=== PATIENT | male | born 1975 | race Caucasian/White ===

== ENCOUNTER 2017-07-30 06:49 | Inpatient (IN) | payer OTHER ==
[~2017-07-30] VITALS: Ht 177.8 cm; Wt 95.2 kg
[~2017-07-30 06:49] MED LIST: OMEP-110 PO
[2017-07-30] MEDS ORDERED: ONDANSETRON 2MG/ML, 2ML ONE ×2 (07:30→09:11)
[2017-07-30] MEDS ORDERED: ONDANSETRON 2MG/ML, 2ML IVPush ONE (07:30)
[2017-07-30] MEDS ORDERED: HYDROmorphone 1 MG/ML, 1ML ONE ×4 (07:30→10:27)
[2017-07-30] MEDS: HYDROmorphone 1 MG/ML, 1ML IVPush PRN ×3 (07:36→09:02)
[2017-07-30 07:37] LABS: HEMATOCRIT 48.6 % (39.2-51.8); HEMOGLOBIN 16.6 g/dL (13.7-18.0); WHITE BLOOD COUNT 15.8 x10^3/uL (3.4-10)
[2017-07-30 07:44] LABS: BLOOD UREA NITROGEN 11 mg/dL (7-18)
[2017-07-30] MEDS ORDERED: HYDROmorphone 1 MG/ML, 1ML IV ONE (09:00)
[2017-07-30] MEDS ORDERED: HEPARIN 5,000 UNITS/ML, 1ML IV ONE (09:00)
[2017-07-30] MEDS ORDERED: MIDAZOLAM 1 MG/ML, 2ML ONE (09:07)
[2017-07-30] MEDS ORDERED: FENTANYL PF 250 MCG/5ML ONE (09:08)
[2017-07-30] MEDS ORDERED: PAPAVERINE 30 MG/ML, 2ML ONE (09:09)
[2017-07-30] MEDS ORDERED: HEPARIN 1,000 UNITS/ML, 30ML ONE (09:09)
[2017-07-30] MEDS ORDERED: THROMBIN 20,000 UNIT VIAL TP ONE (09:09)
[2017-07-30] MEDS ORDERED: BACITRACIN 50,000 UNIT ONE (09:10)
[2017-07-30] MEDS ORDERED: CEFAZOLIN 1,000 MG ONE (09:11)
[2017-07-30] MEDS ORDERED: NEOSTIGMINE 1 MG/ML, 10ML ONE (09:11)
[2017-07-30] MEDS ORDERED: GLYCOPYRROLATE 0.2MG/1ML, 5ML ONE (09:11)
[2017-07-30] MEDS ORDERED: ROCURONIUM 10 MG/ML,10ML ONE (09:11)
[2017-07-30] MEDS ORDERED: PROPOFOL 10 MG/ML, 20ML ONE (09:11)
[2017-07-30] MEDS ORDERED: SUCCINYLCHOLINE 20 MG/ML, 10ML ONE (09:11)
[2017-07-30] MEDS ORDERED: DEXAMETHASONE 4 MG/ML, 1ML ONE (09:11)
[2017-07-30] MEDS ORDERED: THROMBIN 5,000 UNIT VIAL TP ONE ×2 (09:20)
[2017-07-30] MEDS ORDERED: PROTAMINE SULFATE 10 MG/ML, 5ML ONE (09:21)
[2017-07-30] MEDS ORDERED: hydrALAzine 20 MG/ML, 1ML IV PRN (09:30)
[2017-07-30] MEDS ORDERED: HYDROmorphone 1 MG/ML, 1ML IV PRN (09:30)
[2017-07-30] MEDS ORDERED: PROMETHAZINE 25 MG/ML, 1ML IV PRN (09:30)
[2017-07-30] MEDS ORDERED: ONDANSETRON 2MG/ML, 2ML IVPush PRN (09:30)
[2017-07-30] MEDS ORDERED: FENTANYL PF 100 MCG/2ML IV PRN (09:30)
[2017-07-30] MEDS ORDERED: OXYcodone 5 MG/5 ML ORAL.SOL UDC PO PRN (09:30)
[2017-07-30] MEDS ORDERED: LABETALOL 5MG/ML, 20ML IV PRN (09:30)
[2017-07-30] MEDS ORDERED: HYDROcodone/APAP 7.5-325MG/15ML UDC PO PRN (09:30)
[2017-07-30] MEDS ORDERED: ACETAMINOPHEN 325 MG TABLET PO PRN ×2 (09:30→16:30)
[2017-07-30] MEDS ORDERED: LABETALOL 5MG/ML, 20ML ONE ×2 (10:17→12:34)
[2017-07-30] MEDS ORDERED: BUPIVACAINE/PF 0.5% ONE (10:17)
[2017-07-30] MEDS ORDERED: EPINEPHRINE 1 MG/ML, 1ML ONE (10:17)
[2017-07-30] MEDS ORDERED: BUPIVACAINE/PF 0.5% INFIL ONE (10:29)
[2017-07-30] MEDS ORDERED: MEPERIDINE/PF 25MG/0.5ML ONE (12:44)
[2017-07-30] MEDS ORDERED: OXYcodone 5 MG/5 ML ORAL.SOL UDC ONE (13:06)
[2017-07-30] MEDS ORDERED: MEPERIDINE/PF 25MG/0.5ML IVPush PRN (13:30)
[2017-07-30] MEDS ORDERED: D5%-0.45NACL+KCL 20MEQ 1,000 ML IV SCH (16:30)
[2017-07-30] MEDS: HEPARIN 5,000 UNITS/ML, 1ML IV PRN (16:46)
[2017-07-30] MEDS: HEPARIN 25,000 UNITS/500ML PMX 500 ML IV PRN (16:49)
[2017-07-30] MEDS ORDERED: WARFARIN 10 MG TABLET PO-COUM ONE (18:00)
[2017-07-30] MEDS: morphine SULFATE 10 MG/ML, 1ML IVPush PRN ×2 (19:27→21:32)
[2017-07-30] MEDS: NICOTINE 14MG/24 HR PATCH.TD24 TD SCH (20:04)
[2017-07-30] MEDS: SODIUM CHLORIDE FLUSH 10ML SYR IVF SCH (21:33)
[2017-07-31] MEDS: HEPARIN 5,000 UNITS/ML, 1ML IV PRN ×4 (00:21→22:09)
[2017-07-31] MEDS: morphine SULFATE 10 MG/ML, 1ML IVPush PRN ×4 (01:55→20:26)
[2017-07-31] MEDS: ASPIRIN 81 MG TABLET EC PO SCH (04:22)
[2017-07-31 04:26] VITALS: BP 155/75
[2017-07-31 04:35] LABS: HEMATOCRIT 37.6 % (39.2-51.8); HEMOGLOBIN 12.8 g/dL (13.7-18.0); WHITE BLOOD COUNT 10.6 x10^3/uL (3.4-10)
[2017-07-31 04:36] LABS: BLOOD UREA NITROGEN 9 mg/dL (7-18)
[2017-07-31] MEDS: MULTIVITAMIN 1 TABLET PO SCH (08:22)
[2017-07-31] MEDS: SODIUM CHLORIDE FLUSH 10ML SYR IVF SCH ×2 (08:22→19:22)
[2017-07-31] MEDS: WARFARIN HIGH DOSE PROTOCOL XX SCH (12:04)
[2017-07-31] MEDS: FOLIC ACID 1 MG TABLET PO SCH (12:09)
[2017-07-31] MEDS: THIAMINE 100MG TABLET PO SCH (12:09)
[2017-07-31 13:56] VITALS: BP 143/79
[2017-07-31] MEDS: HEPARIN 25,000 UNITS/500ML PMX 500 ML IV PRN (16:19)
[2017-07-31] MEDS ORDERED: WARFARIN 7.5 MG TABLET PO-COUM ONE (18:00)
[2017-07-31 18:35] VITALS: BP 129/77
[2017-07-31] MEDS: NICOTINE 14MG/24 HR PATCH.TD24 TD SCH (19:22)
[2017-08-01] MEDS: morphine SULFATE 10 MG/ML, 1ML IVPush PRN ×5 (00:34→12:52)
[2017-08-01] MEDS: NICOTINE 14MG/24 HR PATCH.TD24 TD SCH ×2 (00:39→22:03)
[2017-08-01 01:05] VITALS: BP 129/76
[2017-08-01] MEDS: ASPIRIN 81 MG TABLET EC PO SCH (03:39)
[2017-08-01 05:40] LABS: HEMATOCRIT 37.7 % (39.2-51.8); HEMOGLOBIN 12.6 g/dL (13.7-18.0); WHITE BLOOD COUNT 7.6 x10^3/uL (3.4-10)
[2017-08-01 05:47] LABS: ASPARTATE AMINO TRANSFERASE 100 U/L (15-37); BLOOD UREA NITROGEN 9 mg/dL (7-18)
[2017-08-01] MEDS: HEPARIN 5,000 UNITS/ML, 1ML IV PRN ×2 (06:09→15:51)
[2017-08-01 07:32] VITALS: BP 134/87
[2017-08-01] MEDS: FOLIC ACID 1 MG TABLET PO SCH (09:00)
[2017-08-01] MEDS: MULTIVITAMIN 1 TABLET PO SCH (09:00)
[2017-08-01] MEDS: THIAMINE 100MG TABLET PO SCH (09:00)
[2017-08-01] MEDS: SODIUM CHLORIDE FLUSH 10ML SYR IVF SCH ×2 (09:27→23:31)
[2017-08-01] MEDS: WARFARIN HIGH DOSE PROTOCOL XX SCH (12:00)
[2017-08-01] MEDS: KETOROLAC 30 MG/1 ML IVPush PRN ×2 (12:24→20:34)
[2017-08-01 15:13] VITALS: BP 147/84
[2017-08-01] MEDS: HEPARIN 25,000 UNITS/500ML PMX 500 ML IV PRN (15:44)
[2017-08-01] MEDS ORDERED: hydrALAzine 20 MG/ML, 1ML IV PRN ×2 (16:00→19:30)
[2017-08-01] MEDS ORDERED: WARFARIN 7.5 MG TABLET PO-COUM ONE (18:00)
[2017-08-01] MEDS ORDERED: MIDAZOLAM 1 MG/ML, 2ML ONE (19:10)
[2017-08-01] MEDS ORDERED: FENTANYL PF 100 MCG/2ML ONE ×3 (19:10→20:48)
[2017-08-01] MEDS ORDERED: PROPOFOL 10 MG/ML, 20ML ONE (19:11)
[2017-08-01] MEDS ORDERED: LABETALOL 5MG/ML, 20ML IV PRN (19:30)
[2017-08-01] MEDS ORDERED: PROMETHAZINE 25 MG/ML, 1ML IV PRN (19:30)
[2017-08-01] MEDS ORDERED: ONDANSETRON 2MG/ML, 2ML IVPush PRN (19:30)
[2017-08-01] MEDS ORDERED: MEPERIDINE/PF 25MG/0.5ML IVPush PRN (19:30)
[2017-08-01] MEDS ORDERED: OXYcodone 5 MG/5 ML ORAL.SOL UDC PO PRN (19:30)
[2017-08-01] MEDS ORDERED: ACETAMINOPHEN 650 MG/20.3 ML UDC ONE (20:17)
[2017-08-01] MEDS ORDERED: HYDROmorphone 1 MG/ML, 1ML ONE ×2 (20:17→20:33)
[2017-08-01] MEDS ORDERED: OXYcodone 5 MG/5 ML ORAL.SOL UDC ONE (20:17)
[2017-08-01] MEDS: HYDROmorphone 1 MG/ML, 1ML IV PRN ×4 (20:25→20:54)
[2017-08-01] MEDS ORDERED: KETOROLAC 30 MG/1 ML ONE (20:32)
[2017-08-01] MEDS: FENTANYL PF 100 MCG/2ML IV PRN ×2 (20:48→21:14)
[2017-08-02 01:46] VITALS: BP 126/81
[2017-08-02] MEDS: morphine SULFATE 10 MG/ML, 1ML IVPush PRN ×4 (03:16→23:33)
[2017-08-02 04:00] VITALS: BP 128/81
[2017-08-02 04:43] LABS: HEMATOCRIT 38.3 % (39.2-51.8); HEMOGLOBIN 12.9 g/dL (13.7-18.0)
[2017-08-02] MEDS: KETOROLAC 30 MG/1 ML IVPush PRN (04:44)
[2017-08-02] MEDS: ASPIRIN 81 MG TABLET EC PO SCH (04:44)
[2017-08-02 04:50] LABS: BLOOD UREA NITROGEN 7 mg/dL (7-18)
[2017-08-02] MEDS: HEPARIN 25,000 UNITS/500ML PMX 500 ML IV PRN ×2 (04:51→20:31)
[2017-08-02 08:20] VITALS: BP 134/84
[2017-08-02] MEDS: SODIUM CHLORIDE FLUSH 10ML SYR IVF SCH ×2 (08:59→21:09)
[2017-08-02] MEDS: FOLIC ACID 1 MG TABLET PO SCH (09:00)
[2017-08-02] MEDS: THIAMINE 100MG TABLET PO SCH (09:00)
[2017-08-02] MEDS: MULTIVITAMIN 1 TABLET PO SCH (09:00)
[2017-08-02] MEDS: WARFARIN HIGH DOSE PROTOCOL XX SCH (12:00)
[2017-08-02 13:00] VITALS: BP 148/80
[2017-08-02] MEDS: FENTANYL 75 MCG PATCH TD SCH (13:15)
[2017-08-02] MEDS ORDERED: WARFARIN 10 MG TABLET PO-COUM ONE (18:00)
[2017-08-02] MEDS: METOPROLOL TARTRATE 50 MG TABLET PO SCH (18:44)
[2017-08-02 19:46] VITALS: BP 137/87
[2017-08-02] MEDS: NICOTINE 14MG/24 HR PATCH.TD24 TD SCH (21:09)
[2017-08-02] MEDS: OXYcodone/APAP 7.5/325MG TABLET PO PRN (21:26)
[2017-08-03] MEDS: morphine SULFATE 10 MG/ML, 1ML IVPush PRN ×4 (00:34→08:07)
[2017-08-03 01:23] VITALS: BP 131/84
[2017-08-03] MEDS: OXYcodone/APAP 7.5/325MG TABLET PO PRN ×2 (05:37→10:08)
[2017-08-03] MEDS: ASPIRIN 81 MG TABLET EC PO SCH (05:37)
[2017-08-03] MEDS: METOPROLOL TARTRATE 50 MG TABLET PO SCH ×2 (05:41→17:54)
[2017-08-03 05:42] VITALS: BP 156/83
[2017-08-03] MEDS: KETOROLAC 30 MG/1 ML IVPush PRN ×3 (05:50→20:37)
[2017-08-03 06:12] LABS: ANTI-Xa-UNFRACTIONATED HEP 0.21 IU/mL (0.30-0.70)
[2017-08-03 06:13] LABS: HEMATOCRIT 39.9 % (39.2-51.8); HEMOGLOBIN 13.8 g/dL (13.7-18.0); WHITE BLOOD COUNT 12.7 x10^3/uL (3.4-10)
[2017-08-03] MEDS ORDERED: HEPARIN 5,000 UNITS/ML, 1ML ONE (06:25)
[2017-08-03] MEDS ORDERED: HEPARIN 5,000 UNITS/ML, 1ML SQ PRN (06:30)
[2017-08-03 06:41] LABS: BLOOD UREA NITROGEN 7 mg/dL (7-18)
[2017-08-03] MEDS: HEPARIN 5,000 UNITS/ML, 1ML IV PRN ×2 (06:43→14:02)
[2017-08-03 07:39] VITALS: BP 133/85
[2017-08-03] MEDS: MULTIVITAMIN 1 TABLET PO SCH (08:07)
[2017-08-03] MEDS: SODIUM CHLORIDE FLUSH 10ML SYR IVF SCH ×2 (08:07→20:38)
[2017-08-03] MEDS: FOLIC ACID 1 MG TABLET PO SCH (08:07)
[2017-08-03] MEDS: THIAMINE 100MG TABLET PO SCH (08:07)
[2017-08-03] MEDS: HEPARIN 25,000 UNITS/500ML PMX 500 ML IV PRN ×2 (10:20→23:15)
[2017-08-03] MEDS ORDERED: NALOXONE 0.4 MG/ML, 1ML IVPush PRN (10:30)
[2017-08-03] MEDS: HYDROmorphone PCA 30 MG/30 ML IV PRN (11:01)
[2017-08-03] MEDS: WARFARIN HIGH DOSE PROTOCOL XX SCH (12:16)
[2017-08-03] MEDS: OXYcodone/APAP 7.5/325MG TABLET PO SCH ×3 (14:00→22:12)
[2017-08-03] MEDS: DOCUSATE 100 MG CAPSULE PO SCH ×2 (14:01→20:38)
[2017-08-03 14:07] VITALS: BP 136/87
[2017-08-03] MEDS: NICOTINE 14MG/24 HR PATCH.TD24 TD SCH (17:55)
[2017-08-03] MEDS ORDERED: WARFARIN 10 MG TABLET PO-COUM ONE (18:00)
[2017-08-03] MEDS ORDERED: ACETAMINOPHEN 325 MG TABLET PO PRN (19:00)
[2017-08-03] MEDS ORDERED: hydrALAzine 20 MG/ML, 1ML IV PRN (19:00)
[2017-08-03 19:18] VITALS: BP 116/83
[2017-08-04 02:13] VITALS: BP 116/73
[2017-08-04] MEDS: OXYcodone/APAP 7.5/325MG TABLET PO SCH ×6 (02:18→22:01)
[2017-08-04 02:33] LABS: HEMATOCRIT 37.5 % (39.2-51.8); HEMOGLOBIN 12.7 g/dL (13.7-18.0)
[2017-08-04 02:36] LABS: BLOOD UREA NITROGEN 12 mg/dL (7-18)
[2017-08-04] MEDS: KETOROLAC 30 MG/1 ML IVPush PRN ×3 (04:05→23:53)
[2017-08-04] MEDS: ASPIRIN 81 MG TABLET EC PO SCH (05:47)
[2017-08-04] MEDS: METOPROLOL TARTRATE 50 MG TABLET PO SCH ×2 (05:48→16:53)
[2017-08-04 07:23] VITALS: BP 123/81
[2017-08-04] MEDS: HYDROmorphone PCA 30 MG/30 ML IV PRN (07:56)
[2017-08-04] MEDS: SODIUM CHLORIDE FLUSH 10ML SYR IVF SCH ×2 (07:56→21:00)
[2017-08-04] MEDS: FOLIC ACID 1 MG TABLET PO SCH (09:00)
[2017-08-04] MEDS: DOCUSATE 100 MG CAPSULE PO SCH ×2 (09:00→20:24)
[2017-08-04] MEDS: THIAMINE 100MG TABLET PO SCH (09:00)
[2017-08-04] MEDS: MULTIVITAMIN 1 TABLET PO SCH (09:00)
[2017-08-04] MEDS ORDERED: MIDAZOLAM 1 MG/ML, 2ML ONE (10:36)
[2017-08-04] MEDS ORDERED: FENTANYL PF 100 MCG/2ML ONE ×2 (10:36→12:02)
[2017-08-04] MEDS ORDERED: BUPIVACAINE/PF 0.5% ONE (10:41)
[2017-08-04] MEDS ORDERED: PROPOFOL 10 MG/ML, 20ML ONE (11:00)
[2017-08-04] MEDS ORDERED: CEFAZOLIN 1,000 MG ONE (11:00)
[2017-08-04] MEDS ORDERED: LIDOCAINE-MPF 2% ,5ML ONE (11:00)
[2017-08-04] MEDS ORDERED: ONDANSETRON 2MG/ML, 2ML ONE (11:00)
[2017-08-04] MEDS ORDERED: DEXAMETHASONE 4 MG/ML, 1ML ONE (11:00)
[2017-08-04] MEDS: WARFARIN HIGH DOSE PROTOCOL XX SCH (11:13)
[2017-08-04] MEDS: FENTANYL PF 100 MCG/2ML IV PRN ×2 (12:00→12:11)
[2017-08-04] MEDS: HYDROmorphone 1 MG/ML, 1ML IV PRN ×2 (12:02→12:12)
[2017-08-04] MEDS ORDERED: HYDROmorphone 1 MG/ML, 1ML ONE (12:02)
[2017-08-04] MEDS: HEPARIN 25,000 UNITS/500ML PMX 500 ML IV PRN (12:29)
[2017-08-04] MEDS ORDERED: LABETALOL 5MG/ML, 20ML IV PRN (12:30)
[2017-08-04] MEDS ORDERED: ACETAMINOPHEN 325 MG TABLET PO PRN (12:30)
[2017-08-04] MEDS ORDERED: MIDAZOLAM 1 MG/ML, 2ML IV PRN (12:30)
[2017-08-04] MEDS ORDERED: MEPERIDINE/PF 25MG/0.5ML IVPush PRN (12:30)
[2017-08-04] MEDS ORDERED: OXYcodone 5 MG/5 ML ORAL.SOL UDC PO PRN (12:30)
[2017-08-04] MEDS ORDERED: PROMETHAZINE 25 MG/ML, 1ML IV PRN (12:30)
[2017-08-04] MEDS ORDERED: ONDANSETRON 2MG/ML, 2ML IVPush PRN (12:30)
[2017-08-04] MEDS ORDERED: hydrALAzine 20 MG/ML, 1ML IV PRN (12:30)
[2017-08-04] MEDS: GABAPENTIN 100 MG CAPSULE PO SCH ×3 (13:36→20:25)
[2017-08-04] MEDS: CILOSTAZOL 100 MG TABLET PO SCH ×2 (13:36→20:24)
[2017-08-04 13:51] VITALS: BP 126/76
[2017-08-04] MEDS ORDERED: WARFARIN 7.5 MG TABLET PO-COUM ONE (18:00)
[2017-08-04] MEDS: NICOTINE 14MG/24 HR PATCH.TD24 TD SCH (19:30)
[2017-08-04 19:44] VITALS: BP 117/73
[2017-08-05] MEDS: HEPARIN 25,000 UNITS/500ML PMX 500 ML IV PRN ×2 (00:51→12:15)
[2017-08-05] MEDS: morphine SULFATE 10 MG/ML, 1ML IVPush PRN (01:01)
[2017-08-05] MEDS: OXYcodone/APAP 7.5/325MG TABLET PO SCH ×6 (01:48→22:00)
[2017-08-05 03:57] VITALS: BP 144/80
[2017-08-05 04:46] LABS: HEMATOCRIT 33.3 % (39.2-51.8); HEMOGLOBIN 11.4 g/dL (13.7-18.0); WHITE BLOOD COUNT 15.3 x10^3/uL (3.4-10)
[2017-08-05 04:55] LABS: ANTI-Xa-UNFRACTIONATED HEP 0.45 IU/mL (0.30-0.70)
[2017-08-05 04:57] LABS: BLOOD UREA NITROGEN 9 mg/dL (7-18)
[2017-08-05] MEDS: KETOROLAC 30 MG/1 ML IVPush PRN ×3 (05:16→20:53)
[2017-08-05] MEDS: METOPROLOL TARTRATE 50 MG TABLET PO SCH ×2 (06:04→18:56)
[2017-08-05] MEDS: ASPIRIN 81 MG TABLET EC PO SCH (06:04)
[2017-08-05] MEDS: HYDROmorphone PCA 30 MG/30 ML IV PRN (06:48)
[2017-08-05 07:01] VITALS: BP 128/73
[2017-08-05] MEDS: MULTIVITAMIN 1 TABLET PO SCH (08:44)
[2017-08-05] MEDS: DOCUSATE 100 MG CAPSULE PO SCH ×2 (08:44→20:48)
[2017-08-05] MEDS: THIAMINE 100MG TABLET PO SCH (08:44)
[2017-08-05] MEDS: FOLIC ACID 1 MG TABLET PO SCH (08:44)
[2017-08-05] MEDS: GABAPENTIN 100 MG CAPSULE PO SCH ×3 (08:44→20:48)
[2017-08-05] MEDS: SODIUM CHLORIDE FLUSH 10ML SYR IVF SCH ×2 (08:45→21:00)
[2017-08-05] MEDS: CILOSTAZOL 100 MG TABLET PO SCH ×2 (08:52→20:48)
[2017-08-05] MEDS: WARFARIN HIGH DOSE PROTOCOL XX SCH (11:46)
[2017-08-05] MEDS: FENTANYL REMOVE PATCH NOTE XX SCH (12:23)
[2017-08-05] MEDS: FENTANYL 75 MCG PATCH TD SCH (12:24)
[2017-08-05 13:00] VITALS: BP 135/78
[2017-08-05] MEDS ORDERED: WARFARIN 10 MG TABLET PO-COUM ONE (18:00)
[2017-08-05 18:23] VITALS: BP 160/98
[2017-08-05] MEDS: NICOTINE 14MG/24 HR PATCH.TD24 TD SCH (19:30)
[2017-08-05 20:00] VITALS: BP 165/89
[2017-08-06] MEDS ORDERED: LORazepam 2 MG/ML, 1ML ONE (00:04)
[2017-08-06] MEDS: LORazepam 2 MG/ML, 1ML IVPush PRN ×4 (00:07→22:01)
[2017-08-06] MEDS ORDERED: FENTANYL 1500 MCG/30 ML PCA IV PRN (00:30)
[2017-08-06] MEDS: OXYcodone/APAP 7.5/325MG TABLET PO SCH (02:00)
[2017-08-06 02:10] VITALS: BP 132/77
[2017-08-06] MEDS: HEPARIN 25,000 UNITS/500ML PMX 500 ML IV PRN (02:17)
[2017-08-06] MEDS: OXYcodone/APAP 10/325MG TABLET PO PRN ×2 (02:19→08:09)
[2017-08-06] MEDS: ASPIRIN 81 MG TABLET EC PO SCH (05:19)
[2017-08-06] MEDS: METOPROLOL TARTRATE 50 MG TABLET PO SCH ×2 (05:19→16:39)
[2017-08-06 05:34] LABS: HEMATOCRIT 31.2 % (39.2-51.8); HEMOGLOBIN 10.7 g/dL (13.7-18.0); WHITE BLOOD COUNT 14.7 x10^3/uL (3.4-10)
[2017-08-06 05:44] LABS: ANTI-Xa-UNFRACTIONATED HEP 0.02 IU/mL (0.30-0.70)
[2017-08-06 05:50] LABS: BLOOD UREA NITROGEN 9 mg/dL (7-18)
[2017-08-06 07:10] VITALS: BP 145/84
[2017-08-06] MEDS: DOCUSATE 100 MG CAPSULE PO SCH ×2 (11:01→21:57)
[2017-08-06] MEDS: CILOSTAZOL 100 MG TABLET PO SCH ×2 (11:01→21:57)
[2017-08-06] MEDS: FOLIC ACID 1 MG TABLET PO SCH (11:01)
[2017-08-06] MEDS: GABAPENTIN 300 MG CAPSULE PO SCH ×3 (11:02→21:57)
[2017-08-06] MEDS: MULTIVITAMIN 1 TABLET PO SCH (11:03)
[2017-08-06] MEDS: THIAMINE 100MG TABLET PO SCH (11:03)
[2017-08-06] MEDS: SODIUM CHLORIDE FLUSH 10ML SYR IVF SCH ×2 (11:06→21:00)
[2017-08-06] MEDS: WARFARIN HIGH DOSE PROTOCOL XX SCH (12:00)
[2017-08-06 12:50] VITALS: BP 122/78
[2017-08-06] MEDS: OXYcodone/APAP 10/325MG TABLET PO SCH ×3 (14:34→21:57)
[2017-08-06] MEDS: morphine SULFATE 10 MG/ML, 1ML IVPush PRN ×4 (16:50→23:35)
[2017-08-06] MEDS: NICOTINE 14MG/24 HR PATCH.TD24 TD SCH (17:59)
[2017-08-06] MEDS ORDERED: WARFARIN 10 MG TABLET PO-COUM ONE (18:00)
[2017-08-06 20:05] VITALS: BP 128/79
[2017-08-07] MEDS: FENTANYL 1500 MCG/30 ML PCA IV PRN (02:10)
[2017-08-07] MEDS: OXYcodone/APAP 10/325MG TABLET PO SCH ×5 (02:12→20:36)
[2017-08-07] MEDS: morphine SULFATE 10 MG/ML, 1ML IVPush PRN ×8 (02:30→23:55)
[2017-08-07 03:19] VITALS: BP 140/92
[2017-08-07 06:48] LABS: HEMATOCRIT 32.5 % (39.2-51.8); HEMOGLOBIN 11.2 g/dL (13.7-18.0); WHITE BLOOD COUNT 14.8 x10^3/uL (3.4-10)
[2017-08-07 06:59] LABS: BLOOD UREA NITROGEN 8 mg/dL (7-18)
[2017-08-07 07:45] VITALS: BP 147/82
[2017-08-07] MEDS: ASPIRIN 81 MG TABLET EC PO SCH (08:30)
[2017-08-07] MEDS: CILOSTAZOL 100 MG TABLET PO SCH ×2 (08:30→20:37)
[2017-08-07] MEDS: METOPROLOL TARTRATE 50 MG TABLET PO SCH ×2 (08:30→18:40)
[2017-08-07] MEDS ORDERED: HOLD COUMADIN MC PRN (08:30)
[2017-08-07] MEDS: SODIUM CHLORIDE FLUSH 10ML SYR IVF SCH ×2 (08:30→20:37)
[2017-08-07] MEDS: DOCUSATE 100 MG CAPSULE PO SCH ×2 (08:30→20:44)
[2017-08-07] MEDS: MULTIVITAMIN 1 TABLET PO SCH (08:31)
[2017-08-07] MEDS: FOLIC ACID 1 MG TABLET PO SCH (08:31)
[2017-08-07] MEDS: THIAMINE 100MG TABLET PO SCH (08:31)
[2017-08-07] MEDS: GABAPENTIN 300 MG CAPSULE PO SCH ×3 (08:31→20:37)
[2017-08-07] MEDS: WARFARIN HIGH DOSE PROTOCOL XX SCH (12:00)
[2017-08-07 12:46] VITALS: BP 109/72
[2017-08-07] MEDS: NICOTINE 14MG/24 HR PATCH.TD24 TD SCH (19:30)
[2017-08-07] MEDS ORDERED: HALOPERIDOL 5 MG/ML IM PRN (19:30)
[2017-08-07 20:07] VITALS: BP 129/86
[2017-08-08] VITALS (8 sets, daily range): BP systolic 101–129; BP diastolic 70–89
[2017-08-08] MEDS: OXYcodone/APAP 10/325MG TABLET PO SCH ×6 (00:28→20:32)
[2017-08-08] MEDS: morphine SULFATE 10 MG/ML, 1ML IVPush PRN ×15 (01:19→21:58)
[2017-08-08] MEDS: FENTANYL 1500 MCG/30 ML PCA IV PRN (04:13)
[2017-08-08 04:35] LABS: HEMATOCRIT 32.9 % (39.2-51.8); HEMOGLOBIN 11.2 g/dL (13.7-18.0); WHITE BLOOD COUNT 18.3 x10^3/uL (3.4-10)
[2017-08-08 04:50] LABS: BLOOD UREA NITROGEN 12 mg/dL (7-18)
[2017-08-08] MEDS: ASPIRIN 81 MG TABLET EC PO SCH (06:15)
[2017-08-08] MEDS: METOPROLOL TARTRATE 50 MG TABLET PO SCH ×2 (06:16→17:43)
[2017-08-08] MEDS: MULTIVITAMIN 1 TABLET PO SCH (08:11)
[2017-08-08] MEDS: GABAPENTIN 300 MG CAPSULE PO SCH ×3 (08:11→20:37)
[2017-08-08] MEDS: FOLIC ACID 1 MG TABLET PO SCH (08:11)
[2017-08-08] MEDS: THIAMINE 100MG TABLET PO SCH (08:11)
[2017-08-08] MEDS: DOCUSATE 100 MG CAPSULE PO SCH ×2 (08:11→20:37)
[2017-08-08] MEDS: SODIUM CHLORIDE FLUSH 10ML SYR IVF SCH ×2 (08:12→20:37)
[2017-08-08] MEDS: CILOSTAZOL 100 MG TABLET PO SCH ×2 (08:12→20:37)
[2017-08-08] MEDS: FENTANYL 100 MCG PATCH TD SCH (11:13)
[2017-08-08] MEDS: FENTANYL 25 MCG PATCH TD SCH (11:14)
[2017-08-08] MEDS: WARFARIN HIGH DOSE PROTOCOL XX SCH (12:00)
[2017-08-08] MEDS: DIAZEPAM 5 MG/ML, 10ML VIAL IV PRN ×2 (12:14→16:17)
[2017-08-08] MEDS: FENTANYL REMOVE PATCH NOTE XX SCH (12:59)
[2017-08-08] MEDS ORDERED: FENTANYL 100 MCG PATCH TD SCH (13:00)
[2017-08-08] MEDS: NICOTINE 14MG/24 HR PATCH.TD24 TD SCH (17:44)
[2017-08-08] MEDS ORDERED: WARFARIN 10 MG TABLET PO-COUM SCH (18:00)
[2017-08-08] MEDS ORDERED: PHYTONADIONE 5 MG in SODIUM CHLORIDE 0.9% 50 ML IV ONE (20:00)
[2017-08-09] VITALS (9 sets, daily range): BP systolic 116–155; BP diastolic 64–95
[2017-08-09] MEDS: morphine SULFATE 10 MG/ML, 1ML IVPush PRN ×5 (00:22→15:32)
[2017-08-09] MEDS: OXYcodone/APAP 10/325MG TABLET PO SCH ×6 (00:39→22:58)
[2017-08-09] MEDS: WARFARIN HIGH DOSE PROTOCOL XX SCH (01:58)
[2017-08-09] MEDS: DIAZEPAM 5 MG/ML, 10ML VIAL IV PRN (02:24)
[2017-08-09] MEDS: ASPIRIN 81 MG TABLET EC PO SCH (03:00)
[2017-08-09 05:33] LABS: HEMATOCRIT 28.9 % (39.2-51.8); HEMOGLOBIN 9.9 g/dL (13.7-18.0); WHITE BLOOD COUNT 14.4 x10^3/uL (3.4-10)
[2017-08-09 05:41] LABS: BLOOD UREA NITROGEN 11 mg/dL (7-18)
[2017-08-09] MEDS: METOPROLOL TARTRATE 50 MG TABLET PO SCH ×2 (06:35→18:00)
[2017-08-09] MEDS: SODIUM CHLORIDE FLUSH 10ML SYR IVF SCH ×2 (07:45→22:58)
[2017-08-09] MEDS: DOCUSATE 100 MG CAPSULE PO SCH ×2 (07:45→22:59)
[2017-08-09] MEDS: CILOSTAZOL 100 MG TABLET PO SCH ×2 (07:45→22:58)
[2017-08-09] MEDS: MULTIVITAMIN 1 TABLET PO SCH (07:46)
[2017-08-09] MEDS: FOLIC ACID 1 MG TABLET PO SCH (07:46)
[2017-08-09] MEDS: GABAPENTIN 300 MG CAPSULE PO SCH ×3 (07:46→22:59)
[2017-08-09] MEDS: THIAMINE 100MG TABLET PO SCH (07:46)
[2017-08-09] MEDS: FENTANYL 1500 MCG/30 ML PCA IV PRN (10:57)
[2017-08-09] MEDS ORDERED: LIDOCAINE-MPF 2% ,5ML ONE (16:40)
[2017-08-09] MEDS ORDERED: MIDAZOLAM 1 MG/ML, 2ML ONE (16:40)
[2017-08-09] MEDS ORDERED: KETAMINE 10 MG/ML, 20ML ONE (16:40)
[2017-08-09] MEDS ORDERED: PROPOFOL 10 MG/ML, 20ML ONE (16:40)
[2017-08-09] MEDS ORDERED: SUFentanil 50 MCG/ML, 1ML ONE (16:40)
[2017-08-09] MEDS ORDERED: SUCCINYLCHOLINE 20 MG/ML, 10ML ONE (16:41)
[2017-08-09] MEDS ORDERED: CEFAZOLIN 1,000 MG ONE (16:50)
[2017-08-09] MEDS ORDERED: DEXAMETHASONE 4 MG/ML, 1ML ONE ×2 (17:03)
[2017-08-09] MEDS ORDERED: HYDROmorphone 1 MG/ML, 1ML IV PRN ×2 (17:30→19:00)
[2017-08-09] MEDS ORDERED: ONDANSETRON 2MG/ML, 2ML IVPush PRN ×2 (17:30→19:00)
[2017-08-09] MEDS ORDERED: PROMETHAZINE 25 MG/ML, 1ML IV PRN ×2 (17:30→19:00)
[2017-08-09] MEDS ORDERED: FENTANYL PF 100 MCG/2ML IV PRN ×2 (17:30→19:00)
[2017-08-09] MEDS ORDERED: ALBUTEROL SULFATE 2.5 MG/3 ML NPPB PRN ×2 (17:30→19:00)
[2017-08-09] MEDS ORDERED: hydrALAzine 20 MG/ML, 1ML IV PRN ×2 (17:30→19:00)
[2017-08-09] MEDS ORDERED: LABETALOL 5MG/ML, 20ML IV PRN ×2 (17:30→19:00)
[2017-08-09] MEDS ORDERED: LORazepam 2 MG/ML, 1ML IVPush PRN ×2 (17:30→19:00)
[2017-08-09] MEDS ORDERED: MEPERIDINE/PF 25MG/0.5ML IVPush PRN ×2 (17:30→19:00)
[2017-08-09] MEDS ORDERED: WARFARIN 10 MG TABLET PO-COUM SCH (18:00)
[2017-08-09] MEDS ORDERED: ONDANSETRON 2MG/ML, 2ML ONE (18:07)
[2017-08-09] MEDS ORDERED: KETOROLAC 30 MG/1 ML ONE (18:08)
[2017-08-09] MEDS ORDERED: HYDROmorphone 1 MG/ML, 1ML ONE ×2 (18:09→19:14)
[2017-08-09] MEDS ORDERED: HYDROmorphone 2 MG/ML, 1ML ONE ×2 (18:24→18:36)
[2017-08-09] MEDS ORDERED: HALOPERIDOL 5 MG/ML ONE (18:29)
[2017-08-09] MEDS ORDERED: FENTANYL PF 100 MCG/2ML ONE (18:36)
[2017-08-09] MEDS ORDERED: OXYcodone 5 MG/5 ML ORAL.SOL UDC ONE (18:36)
[2017-08-09] MEDS ORDERED: ACETAMINOPHEN 650 MG/20.3 ML UDC ONE (18:36)
[2017-08-09] MEDS ORDERED: HYDROcodone/APAP 7.5-325MG/15ML UDC PO PRN (19:00)
[2017-08-09] MEDS ORDERED: ACETAMINOPHEN 325 MG TABLET PO PRN (19:00)
[2017-08-09] MEDS ORDERED: ALBUTEROL/IPRATROPIUM 2.5MG/0.5MG, 3 ML NPPB PRN (19:00)
[2017-08-09] MEDS ORDERED: OXYcodone 5 MG/5 ML ORAL.SOL UDC PO PRN (19:00)
[2017-08-09] MEDS ORDERED: MIDAZOLAM 1 MG/ML, 2ML IV PRN (19:00)
[2017-08-09] MEDS: NICOTINE 14MG/24 HR PATCH.TD24 TD SCH (19:30)
[2017-08-10 00:56] VITALS: BP 127/74
[2017-08-10 04:06] VITALS: BP 125/71
[2017-08-10] MEDS: OXYcodone/APAP 10/325MG TABLET PO SCH ×5 (04:22→22:14)
[2017-08-10 05:33] LABS: HEMATOCRIT 30.8 % (39.2-51.8); HEMOGLOBIN 10.4 g/dL (13.7-18.0); WHITE BLOOD COUNT 12.8 x10^3/uL (3.4-10)
[2017-08-10 05:41] LABS: BLOOD UREA NITROGEN 8 mg/dL (7-18)
[2017-08-10 06:14] VITALS: BP 128/74
[2017-08-10] MEDS: ASPIRIN 81 MG TABLET EC PO SCH (06:15)
[2017-08-10] MEDS: METOPROLOL TARTRATE 50 MG TABLET PO SCH ×2 (06:16→17:51)
[2017-08-10] MEDS: DIAZEPAM 5 MG/ML, 10ML VIAL IV PRN (06:16)
[2017-08-10] MEDS: SODIUM CHLORIDE FLUSH 10ML SYR IVF SCH ×2 (08:40→22:14)
[2017-08-10] MEDS: CILOSTAZOL 100 MG TABLET PO SCH ×2 (08:40→22:14)
[2017-08-10] MEDS: GABAPENTIN 300 MG CAPSULE PO SCH ×3 (08:40→22:14)
[2017-08-10] MEDS: DOCUSATE 100 MG CAPSULE PO SCH ×2 (08:40→22:14)
[2017-08-10] MEDS: FOLIC ACID 1 MG TABLET PO SCH (08:40)
[2017-08-10] MEDS: MULTIVITAMIN 1 TABLET PO SCH (08:41)
[2017-08-10] MEDS: THIAMINE 100MG TABLET PO SCH (08:41)
[2017-08-10 13:58] VITALS: BP 125/82
[2017-08-10] MEDS: WARFARIN HIGH DOSE PROTOCOL XX SCH (14:00)
[2017-08-10] MEDS: LORazepam 2 MG/ML, 1ML IVPush PRN (17:36)
[2017-08-10] MEDS ORDERED: WARFARIN 7.5 MG TABLET PO-COUM SCH (18:00)
[2017-08-10] MEDS: NICOTINE 14MG/24 HR PATCH.TD24 TD SCH (19:30)
[2017-08-10 20:32] VITALS: BP 132/82
[2017-08-10] MEDS: FENTANYL 1500 MCG/30 ML PCA IV PRN (21:06)
[2017-08-11 03:08] VITALS: BP 127/84
[2017-08-11] MEDS: OXYcodone/APAP 10/325MG TABLET PO SCH ×6 (03:09→23:00)
[2017-08-11 05:43] LABS: HEMATOCRIT 28.3 % (39.2-51.8); HEMOGLOBIN 9.8 g/dL (13.7-18.0); WHITE BLOOD COUNT 13.3 x10^3/uL (3.4-10)
[2017-08-11 05:55] LABS: BLOOD UREA NITROGEN 10 mg/dL (7-18)
[2017-08-11 06:16] VITALS: BP 132/87
[2017-08-11] MEDS: METOPROLOL TARTRATE 50 MG TABLET PO SCH ×2 (06:18→18:04)
[2017-08-11] MEDS: ASPIRIN 81 MG TABLET EC PO SCH (06:18)
[2017-08-11] MEDS: DIAZEPAM 5 MG/ML, 10ML VIAL IV PRN ×3 (06:30→23:28)
[2017-08-11 07:33] VITALS: BP 132/80
[2017-08-11] MEDS: DOCUSATE 100 MG CAPSULE PO SCH ×2 (10:00→21:02)
[2017-08-11] MEDS: SODIUM CHLORIDE FLUSH 10ML SYR IVF SCH ×2 (10:00→21:03)
[2017-08-11] MEDS: THIAMINE 100MG TABLET PO SCH (10:01)
[2017-08-11] MEDS: MULTIVITAMIN 1 TABLET PO SCH (10:01)
[2017-08-11] MEDS: CILOSTAZOL 100 MG TABLET PO SCH ×2 (10:01→21:02)
[2017-08-11] MEDS: GABAPENTIN 300 MG CAPSULE PO SCH ×3 (10:01→21:01)
[2017-08-11] MEDS: FOLIC ACID 1 MG TABLET PO SCH (10:01)
[2017-08-11] MEDS ORDERED: FENTANYL 75 MCG PATCH ONE (11:17)
[2017-08-11] MEDS: ENOXAPARIN 150 MG/ML SQ SCH (11:24)
[2017-08-11] MEDS: WARFARIN HIGH DOSE PROTOCOL XX SCH (12:00)
[2017-08-11 16:00] VITALS: BP 139/91
[2017-08-11] MEDS: FENTANYL 25 MCG PATCH TD SCH (16:42)
[2017-08-11] MEDS: FENTANYL REMOVE PATCH NOTE XX SCH (16:42)
[2017-08-11] MEDS: FENTANYL 100 MCG PATCH TD SCH (16:42)
[2017-08-11] MEDS: WARFARIN 10 MG TABLET PO-COUM ONE ×2 (18:00→23:14)
[2017-08-11] MEDS: NICOTINE 14MG/24 HR PATCH.TD24 TD SCH (19:30)
[2017-08-11 20:10] VITALS: BP 144/90
[2017-08-11] MEDS: FENTANYL 1500 MCG/30 ML PCA IV PRN (20:24)
[2017-08-12 01:58] VITALS: BP 96/61
[2017-08-12] MEDS: OXYcodone/APAP 10/325MG TABLET PO SCH ×6 (03:07→23:04)
[2017-08-12 06:22] LABS: HEMOGLOBIN 10.1 g/dL (13.7-18.0); WHITE BLOOD COUNT 11.7 x10^3/uL (3.4-10)
[2017-08-12] MEDS: METOPROLOL TARTRATE 50 MG TABLET PO SCH ×2 (06:30→18:52)
[2017-08-12] MEDS: ASPIRIN 81 MG TABLET EC PO SCH (06:30)
[2017-08-12 06:34] LABS: BLOOD UREA NITROGEN 7 mg/dL (7-18)
[2017-08-12 06:44] VITALS: BP 134/82
[2017-08-12] MEDS: DIAZEPAM 5 MG/ML, 10ML VIAL IV PRN ×3 (06:48→23:21)
[2017-08-12] MEDS: THIAMINE 100MG TABLET PO SCH (08:29)
[2017-08-12] MEDS: FOLIC ACID 1 MG TABLET PO SCH (08:29)
[2017-08-12] MEDS: MULTIVITAMIN 1 TABLET PO SCH (08:29)
[2017-08-12] MEDS: GABAPENTIN 300 MG CAPSULE PO SCH ×3 (08:29→21:15)
[2017-08-12] MEDS: DOCUSATE 100 MG CAPSULE PO SCH ×2 (08:29→21:00)
[2017-08-12] MEDS: SODIUM CHLORIDE FLUSH 10ML SYR IVF SCH ×2 (08:30→21:16)
[2017-08-12] MEDS: CILOSTAZOL 100 MG TABLET PO SCH ×2 (10:20→21:16)
[2017-08-12] MEDS: ENOXAPARIN 150 MG/ML SQ SCH (11:09)
[2017-08-12] MEDS: WARFARIN HIGH DOSE PROTOCOL XX SCH (11:55)
[2017-08-12 13:03] VITALS: BP 108/68
[2017-08-12] MEDS ORDERED: WARFARIN 7.5 MG TABLET PO-COUM ONE (18:00)
[2017-08-12] MEDS: FENTANYL 1500 MCG/30 ML PCA IV PRN (18:53)
[2017-08-12 19:19] VITALS: BP 133/90
[2017-08-12] MEDS: NICOTINE 14MG/24 HR PATCH.TD24 TD SCH (19:30)
[2017-08-13 02:00] VITALS: BP 121/79
[2017-08-13] MEDS: OXYcodone/APAP 10/325MG TABLET PO SCH ×6 (03:01→22:52)
[2017-08-13] MEDS: ASPIRIN 81 MG TABLET EC PO SCH (06:04)
[2017-08-13] MEDS: METOPROLOL TARTRATE 50 MG TABLET PO SCH ×2 (06:04→17:50)
[2017-08-13 06:40] VITALS: BP 120/78
[2017-08-13 08:14] LABS: HEMATOCRIT 30.6 % (39.2-51.8); HEMOGLOBIN 10.5 g/dL (13.7-18.0); WHITE BLOOD COUNT 10.9 x10^3/uL (3.4-10)
[2017-08-13 08:21] LABS: BLOOD UREA NITROGEN 8 mg/dL (7-18)
[2017-08-13] MEDS: GABAPENTIN 300 MG CAPSULE PO SCH ×3 (10:11→20:31)
[2017-08-13] MEDS: THIAMINE 100MG TABLET PO SCH (10:11)
[2017-08-13] MEDS: DOCUSATE 100 MG CAPSULE PO SCH ×2 (10:11→20:31)
[2017-08-13] MEDS: FOLIC ACID 1 MG TABLET PO SCH (10:11)
[2017-08-13] MEDS: MULTIVITAMIN 1 TABLET PO SCH (10:11)
[2017-08-13] MEDS: CILOSTAZOL 100 MG TABLET PO SCH ×2 (10:11→20:31)
[2017-08-13] MEDS: DIAZEPAM 5 MG/ML, 10ML VIAL IV PRN ×2 (10:14→17:50)
[2017-08-13] MEDS: SODIUM CHLORIDE FLUSH 10ML SYR IVF SCH ×2 (10:14→20:31)
[2017-08-13] MEDS: ENOXAPARIN 150 MG/ML SQ SCH (11:14)
[2017-08-13] MEDS: WARFARIN HIGH DOSE PROTOCOL XX SCH (12:00)
[2017-08-13 13:43] VITALS: BP 120/78
[2017-08-13 17:51] VITALS: BP 122/82
[2017-08-13] MEDS ORDERED: WARFARIN 7.5 MG TABLET PO-COUM ONE (18:00)
[2017-08-13] MEDS: FENTANYL 1500 MCG/30 ML PCA IV PRN (19:04)
[2017-08-13] MEDS: NICOTINE 14MG/24 HR PATCH.TD24 TD SCH (19:30)
[2017-08-13 21:12] VITALS: BP 116/79
[2017-08-14] MEDS: OXYcodone/APAP 10/325MG TABLET PO SCH ×2 (02:49→07:05)
[2017-08-14 04:09] VITALS: BP 117/70
[2017-08-14 05:20] LABS: HEMOGLOBIN 10.4 g/dL (13.7-18.0); WHITE BLOOD COUNT 15.5 x10^3/uL (3.4-10)
[2017-08-14 05:37] LABS: BLOOD UREA NITROGEN 10 mg/dL (7-18)
[2017-08-14] MEDS: ASPIRIN 81 MG TABLET EC PO SCH (06:05)
[2017-08-14] MEDS: METOPROLOL TARTRATE 50 MG TABLET PO SCH ×2 (06:05→18:16)
[2017-08-14 07:16] VITALS: BP 116/75
[2017-08-14] MEDS: CILOSTAZOL 100 MG TABLET PO SCH ×2 (07:56→22:08)
[2017-08-14] MEDS: SODIUM CHLORIDE FLUSH 10ML SYR IVF SCH ×2 (07:57→22:08)
[2017-08-14] MEDS: DOCUSATE 100 MG CAPSULE PO SCH ×2 (07:58→22:10)
[2017-08-14] MEDS: FOLIC ACID 1 MG TABLET PO SCH (07:59)
[2017-08-14] MEDS: MULTIVITAMIN 1 TABLET PO SCH (07:59)
[2017-08-14] MEDS: GABAPENTIN 300 MG CAPSULE PO SCH ×3 (07:59→22:08)
[2017-08-14] MEDS: THIAMINE 100MG TABLET PO SCH (08:00)
[2017-08-14] MEDS ORDERED: FENTANYL 1500 MCG/30 ML PCA IV PRN (09:00)
[2017-08-14] MEDS ORDERED: FENTANYL 50 MCG PATCH TD SCH (11:00)
[2017-08-14] MEDS ORDERED: OXYcodone/APAP 10/325MG TABLET ONE ×2 (11:11→15:23)
[2017-08-14] MEDS: ENOXAPARIN 150 MG/ML SQ SCH (11:14)
[2017-08-14] MEDS: WARFARIN HIGH DOSE PROTOCOL XX SCH (12:00)
[2017-08-14] MEDS ORDERED: OXYcodone/APAP 10/325MG TABLET PO SCH (12:30)
[2017-08-14 12:31] VITALS: BP 110/68
[2017-08-14] MEDS: FENTANYL REMOVE PATCH NOTE XX SCH (12:59)
[2017-08-14] MEDS: FENTANYL 100 MCG PATCH TD SCH (13:38)
[2017-08-14] MEDS: OXYcodone/APAP 10/325MG TABLET PO PRN ×3 (15:30→23:37)
[2017-08-14] MEDS ORDERED: WARFARIN 7.5 MG TABLET PO-COUM ONE (18:00)
[2017-08-14 18:20] VITALS: BP 118/83
[2017-08-14 20:55] VITALS: BP 104/64
[2017-08-14] MEDS: NICOTINE 14MG/24 HR PATCH.TD24 TD SCH (22:10)
[2017-08-15 02:44] VITALS: BP 117/73
[2017-08-15] MEDS: OXYcodone/APAP 10/325MG TABLET PO PRN ×6 (02:57→22:59)
[2017-08-15 04:54] LABS: BLOOD UREA NITROGEN 13 mg/dL (7-18)
[2017-08-15 04:57] LABS: HEMATOCRIT 30.7 % (39.2-51.8); HEMOGLOBIN 10.4 g/dL (13.7-18.0); WHITE BLOOD COUNT 11.6 x10^3/uL (3.4-10)
[2017-08-15 06:45] VITALS: BP 123/83
[2017-08-15] MEDS: METOPROLOL TARTRATE 50 MG TABLET PO SCH ×2 (07:27→17:14)
[2017-08-15] MEDS: ASPIRIN 81 MG TABLET EC PO SCH (07:27)
[2017-08-15] MEDS: MULTIVITAMIN 1 TABLET PO SCH (09:07)
[2017-08-15] MEDS: THIAMINE 100MG TABLET PO SCH (09:07)
[2017-08-15] MEDS: DOCUSATE 100 MG CAPSULE PO SCH ×2 (09:07→20:06)
[2017-08-15] MEDS: GABAPENTIN 300 MG CAPSULE PO SCH ×3 (09:07→20:05)
[2017-08-15] MEDS: SODIUM CHLORIDE FLUSH 10ML SYR IVF SCH ×2 (09:07→20:06)
[2017-08-15] MEDS: FOLIC ACID 1 MG TABLET PO SCH (09:07)
[2017-08-15] MEDS: CILOSTAZOL 100 MG TABLET PO SCH ×2 (10:47→20:06)
[2017-08-15] MEDS: OxyconTIN ER 20 MG TAB.ER PO SCH ×2 (10:47→21:04)
[2017-08-15] MEDS: ENOXAPARIN 150 MG/ML SQ SCH (11:16)
[2017-08-15 12:15] VITALS: BP 115/73
[2017-08-15] MEDS: WARFARIN HIGH DOSE PROTOCOL XX SCH (14:54)
[2017-08-15] MEDS ORDERED: WARFARIN 7.5 MG TABLET PO-COUM ONE (18:00)
[2017-08-15] MEDS ORDERED: WARFARIN 1 MG TABLET PO-COUM ONE (18:00)
[2017-08-15] MEDS: NICOTINE 14MG/24 HR PATCH.TD24 TD SCH (19:05)
[2017-08-15 19:13] VITALS: BP 112/75
[2017-08-16 00:41] VITALS: BP 112/76
[2017-08-16] MEDS: OXYcodone/APAP 10/325MG TABLET PO PRN ×4 (03:07→14:37)
[2017-08-16 05:01] LABS: HEMATOCRIT 30.2 % (39.2-51.8); HEMOGLOBIN 10.2 g/dL (13.7-18.0); WHITE BLOOD COUNT 9.9 x10^3/uL (3.4-10)
[2017-08-16 05:08] LABS: BLOOD UREA NITROGEN 12 mg/dL (7-18)
[2017-08-16] MEDS: ASPIRIN 81 MG TABLET EC PO SCH (06:37)
[2017-08-16] MEDS: METOPROLOL TARTRATE 50 MG TABLET PO SCH (06:37)
[2017-08-16] MEDS: morphine SULFATE 10 MG/ML, 1ML IVPush PRN (08:22)
[2017-08-16 08:30] VITALS: BP 109/73
[2017-08-16] MEDS: SODIUM CHLORIDE FLUSH 10ML SYR IVF SCH (10:23)
[2017-08-16] MEDS: CILOSTAZOL 100 MG TABLET PO SCH (10:23)
[2017-08-16] MEDS: GABAPENTIN 300 MG CAPSULE PO SCH (10:24)
[2017-08-16] MEDS: FOLIC ACID 1 MG TABLET PO SCH (10:24)
[2017-08-16] MEDS: MULTIVITAMIN 1 TABLET PO SCH (10:24)
[2017-08-16] MEDS: DOCUSATE 100 MG CAPSULE PO SCH (10:24)
[2017-08-16] MEDS: OxyconTIN ER 20 MG TAB.ER PO SCH (10:24)
[2017-08-16] MEDS: THIAMINE 100MG TABLET PO SCH (10:24)
[2017-08-16] MEDS: WARFARIN HIGH DOSE PROTOCOL XX SCH (12:00)
[2017-08-16] MEDS ORDERED: GABA600T2 PO (14:06)
[2017-08-16] MEDS ORDERED: OXYC-307 PO (14:07)
[2017-08-16] MEDS ORDERED: OXYC20TA42 PO (14:07)
[2017-08-16] MEDS ORDERED: WARF3TAB7 PO (14:08)
[2017-08-16] MEDS ORDERED: WARF5TAB7 PO (14:09)
[2017-08-16] MEDS ORDERED: METO50TA82 PO (14:09)
[2017-08-16 14:30] VITALS: BP 112/78
[2017-08-16] MEDS ORDERED: WARFARIN 7.5 MG TABLET PO-COUM ONE (18:00)
== END 2017-08-16 15:00 | DRG 239 ==
LOC: OR 09:07 → EDIP 09:27 → CCU 13:55 → ICU 19:16 → 4NOR 07-31 13:52
PROVIDERS: ADMIT Surgery; ATTEND Internal Medicine
PROC: 04CN0ZZ Extirpation of Matter from Left Popliteal Artery, Open Approach (ICD-10-PCS; 2017-07-30)
PROC: 04CS0ZZ Extirpation of Matter from Left Posterior Tibial Artery, Open Approach (ICD-10-PCS; 2017-07-30)
PROC: 04CY0ZZ Extirpation of Matter from Lower Artery, Open Approach (ICD-10-PCS; 2017-07-30)
PROC: 0KNT0ZZ Release Left Lower Leg Muscle, Open Approach (ICD-10-PCS; 2017-07-30)
PROC: 0KNT0ZZ Release Left Lower Leg Muscle, Open Approach (ICD-10-PCS; 2017-07-30)
PROC: 0KNT0ZZ Release Left Lower Leg Muscle, Open Approach (ICD-10-PCS; 2017-07-30)
PROC: 0KNT0ZZ Release Left Lower Leg Muscle, Open Approach (ICD-10-PCS; 2017-07-30)
PROC: 04CQ0ZZ Extirpation of Matter from Left Anterior Tibial Artery, Open Approach (ICD-10-PCS; 2017-07-30)
PROC: 049 Lower Arteries, Drainage (ICD-10-PCS; 2017-07-30)
PROC: 04CL0ZZ Extirpation of Matter from Left Femoral Artery, Open Approach (ICD-10-PCS; principal; 2017-07-30 09:00)
PROC: 2W2MX4Z Dressing of Left Lower Extremity using Bandage (ICD-10-PCS; 2017-08-01)
PROC: 02HV33Z Insertion of Infusion Device into Superior Vena Cava, Percutaneous Approach (ICD-10-PCS; 2017-08-05)
PROC: B5181ZA Fluoroscopy of Superior Vena Cava using Low Osmolar Contrast, Guidance (ICD-10-PCS; 2017-08-05)
PROC: B548ZZA Ultrasonography of Superior Vena Cava, Guidance (ICD-10-PCS; 2017-08-05)
PROC: 30233L1 Transfusion of Nonautologous Fresh Plasma into Peripheral Vein, Percutaneous Approach (ICD-10-PCS; 2017-08-08)
PROC: 30233K1 Transfusion of Nonautologous Frozen Plasma into Peripheral Vein, Percutaneous Approach (ICD-10-PCS; 2017-08-08)
PROC: 0Y6J0Z1 Detachment at Left Lower Leg, High, Open Approach (ICD-10-PCS; 2017-08-09)
DX: I74.3 Embolism and thrombosis of arteries of the lower extremities (principal); E43 Unspecified severe protein-calorie malnutrition; D68.69 Other thrombophilia; D72.829 Elevated white blood cell count, unspecified; Z68.30 Body mass index [BMI] 30.0-30.9, adult; F10.10 Alcohol abuse, uncomplicated; F17.210 Nicotine dependence, cigarettes, uncomplicated; I10 Essential (primary) hypertension; I48.91 Unspecified atrial fibrillation; I99.8 Other disorder of circulatory system; Z79.01 Long term (current) use of anticoagulants; Z82.5 Family history of asthma and other chronic lower respiratory diseases
CPT/HCPCS: 36415; 36569; 71010; 75710; 76937; 77001; 80048; 80053; 81003; 82040; 82962; 83735; 84100; 85025; 85347; 85520; 85610; 85730; 86850; 86900; 87040; 87081; 88304; 88307; 93005; 93922; 93926; 96374; 96375; C1729; J0171; J0690; J1100; J1170; J1644; J1650; J1885; J2175; J2250; J2270; J2405; J2704; J2710; J2720; J3010; J3360; J3430; J3490; C1751; C1757; J0330; J0360; J1630; J2060; J2440; P9017

== ENCOUNTER 2017-09-24 06:42 | Inpatient (IN) | payer BC, OTHER ==
[~2017-09-24] VITALS: Ht 177.8 cm; Wt 90.5 kg
[~2017-09-24 06:42] MED LIST changes: +GABA600T2 PO; +METO50TA82 PO; +OXYC-307 PO; +OXYC20TA42 PO; +WARF3TAB7 PO; +WARF5TAB7 PO
[2017-09-24] MEDS ORDERED: LACTATED RINGERS 1,000 ML IV SCH (07:24)
[2017-09-24 07:25] VITALS: BP 143/96
[2017-09-24] MEDS ORDERED: KETAMINE 10 MG/ML, 20ML ONE (08:01)
[2017-09-24] MEDS ORDERED: FENTANYL PF 100 MCG/2ML ONE (08:02)
[2017-09-24] MEDS ORDERED: MIDAZOLAM 1 MG/ML, 2ML ONE (08:02)
[2017-09-24] MEDS ORDERED: OXYcodone 5 MG/5 ML ORAL.SOL UDC PO PRN (09:30)
[2017-09-24] MEDS ORDERED: MEPERIDINE/PF 25MG/0.5ML IVPush PRN (09:30)
[2017-09-24] MEDS ORDERED: PROMETHAZINE 25 MG/ML, 1ML IV PRN (09:30)
[2017-09-24] MEDS ORDERED: ACETAMINOPHEN 325 MG TABLET PO PRN ×2 (09:30→12:30)
[2017-09-24] MEDS ORDERED: FENTANYL PF 100 MCG/2ML IV PRN (09:30)
[2017-09-24] MEDS ORDERED: KETOROLAC 30 MG/1 ML IV PRN (09:30)
[2017-09-24] MEDS ORDERED: DIAZEPAM 5 MG/ML, 2ML IVPush PRN (09:30)
[2017-09-24] MEDS ORDERED: ACETAMINOPHEN 650 MG/20.3 ML UDC ONE (09:51)
[2017-09-24] MEDS ORDERED: OXYcodone 5 MG/5 ML ORAL.SOL UDC ONE (09:51)
[2017-09-24] MEDS ORDERED: KETOROLAC 30 MG/1 ML ONE (09:51)
[2017-09-24 11:00] VITALS: BP 124/74
[2017-09-24] MEDS ORDERED: PLEASE ENTER WEIGHT MC SCH (12:00)
[2017-09-24] MEDS ORDERED: hydrALAzine 20 MG/ML, 1ML IV PRN (12:30)
[2017-09-24] MEDS ORDERED: ENALAPRILAT 1.25 MG/ML, 2ML IV PRN (12:30)
[2017-09-24] MEDS ORDERED: HYDROmorphone 1 MG/ML, 1ML IV PRN (12:30)
[2017-09-24] MEDS ORDERED: DIPHENHYDRAMINE 50 MG/ML, 1ML IV PRN (12:30)
[2017-09-24] MEDS ORDERED: ONDANSETRON 2MG/ML, 2ML IV PRN (12:30)
[2017-09-24] MEDS ORDERED: ACETAMINOPHEN 650 MG SUPP PR PRN (12:30)
[2017-09-24] MEDS ORDERED: DIPHENHYDRAMINE 25 MG CAPSULE PO PRN (12:30)
[2017-09-24 13:05] LABS: INTERNATIONAL NORMALIZED RATIO 1.1 (0.93-1.1); PROTHROMBIN TIME 11.4 Seconds (9.6-11.5)
[2017-09-24] MEDS: ENOXAPARIN 40 MG/0.4 ML SQ SCH (13:12)
[2017-09-24] MEDS: POTASSIUM CHLORIDE 20 MEQ in D5%-0.45% NACL 1,000 ML IV SCH ×2 (13:12→22:36)
[2017-09-24 13:45] VITALS: BP 134/73
[2017-09-24] MEDS: OXYcodone/APAP 10/325MG TABLET PO PRN ×3 (14:00→22:00)
[2017-09-24] MEDS ORDERED: ONDANSETRON 2MG/ML, 2ML ONE (15:16)
[2017-09-24] MEDS ORDERED: PROPOFOL 10 MG/ML, 20ML ONE (15:16)
[2017-09-24] MEDS ORDERED: CEFAZOLIN 1,000 MG ONE (15:16)
[2017-09-24] MEDS ORDERED: DEXAMETHASONE 4 MG/ML, 1ML ONE (15:16)
[2017-09-24] MEDS: WARFARIN 10 MG TABLET PO-COUM SCH (18:10)
[2017-09-24 20:04] VITALS: BP 128/72
[2017-09-24] MEDS: SODIUM CHLORIDE FLUSH 10ML SYR IVF SCH (21:00)
[2017-09-24] MEDS: KETOROLAC 30 MG/1 ML IV PRN (21:30)
[2017-09-25 03:38] VITALS: BP 122/66
[2017-09-25 06:02] LABS: INTERNATIONAL NORMALIZED RATIO 1.05 (0.93-1.1); PROTHROMBIN TIME 10.9 Seconds (9.6-11.5)
[2017-09-25] MEDS ORDERED: WARF4TAB7 PO (06:26)
[2017-09-25] MEDS ORDERED: DOCU-131 PO (06:30)
[2017-09-25 06:48] VITALS: BP 132/73
[2017-09-25] MEDS: OXYcodone/APAP 10/325MG TABLET PO PRN ×5 (08:17→22:01)
[2017-09-25] MEDS: KETOROLAC 30 MG/1 ML IV PRN ×2 (08:17→15:06)
[2017-09-25] MEDS: POTASSIUM CHLORIDE 20 MEQ in D5%-0.45% NACL 1,000 ML IV SCH ×2 (08:42→22:02)
[2017-09-25] MEDS: SODIUM CHLORIDE FLUSH 10ML SYR IVF SCH ×2 (09:00→21:00)
[2017-09-25] MEDS: ENOXAPARIN 40 MG/0.4 ML SQ SCH (15:06)
[2017-09-25 15:24] VITALS: BP 102/55
[2017-09-25] MEDS: WARFARIN 10 MG TABLET PO-COUM SCH (17:56)
[2017-09-25 20:25] VITALS: BP 133/82
[2017-09-26 02:21] VITALS: BP 118/69
[2017-09-26] MEDS: OXYcodone/APAP 10/325MG TABLET PO PRN ×4 (02:42→16:48)
[2017-09-26] MEDS: POTASSIUM CHLORIDE 20 MEQ in D5%-0.45% NACL 1,000 ML IV SCH ×2 (04:54→15:00)
[2017-09-26 05:31] LABS: INTERNATIONAL NORMALIZED RATIO 1.35 (0.93-1.1)
[2017-09-26 07:26] VITALS: BP 134/81
[2017-09-26] MEDS: SODIUM CHLORIDE FLUSH 10ML SYR IVF SCH (08:27)
[2017-09-26] MEDS: ENOXAPARIN 40 MG/0.4 ML SQ SCH (12:31)
[2017-09-26 15:29] VITALS: BP 151/87
== END 2017-09-26 17:10 | disposition home or self-care (01) | DRG 465 ==
LOC: OUT 06:42 → 4NOR 11:24 → OUT 11:30 → 4NOR 11:31
PROVIDERS: ADMIT Surgery; ATTEND Surgery
PROC: 0JBP0ZZ Excision of Left Lower Leg Subcutaneous Tissue and Fascia, Open Approach (ICD-10-PCS; principal; 2017-09-24 08:30)
DX: T87.81 Dehiscence of amputation stump (principal); I48.91 Unspecified atrial fibrillation; Y83.5 Amputation of limb(s) as the cause of abnormal reaction of the patient, or of later complication, without mention of misadventure at the time of the procedure; I10 Essential (primary) hypertension; Z91.013 Allergy to seafood; Z79.899 Other long term (current) drug therapy; Z82.49 Family history of ischemic heart disease and other diseases of the circulatory system; Z83.3 Family history of diabetes mellitus; Z89.512 Acquired absence of left leg below knee; Y92.89 Other specified places as the place of occurrence of the external cause; Z87.891 Personal history of nicotine dependence
CPT/HCPCS: 36415; 85610; B4087; J0690; J1100; J1650; J1885; J2250; J2405; J2704; J3010; J3480; J7120

== ENCOUNTER 2017-10-05 07:09 | Inpatient (IN) | payer OTHER ==
[~2017-10-05] VITALS: Ht 177.8 cm; Wt 89.0 kg
[~2017-10-05 07:09] MED LIST changes: +DOCU-131 PO; +WARF4TAB7 PO
[2017-10-05] MEDS ORDERED: LACTATED RINGERS 1,000 ML IV SCH (07:57)
[2017-10-05 08:27] LABS: INTERNATIONAL NORMALIZED RATIO 1.6 (0.93-1.1); PROTHROMBIN TIME 16.5 Seconds (9.6-11.5)
[2017-10-05] MEDS ORDERED: FENTANYL PF 100 MCG/2ML ONE ×2 (09:23→10:52)
[2017-10-05] MEDS ORDERED: MIDAZOLAM 1 MG/ML, 2ML ONE (09:24)
[2017-10-05] MEDS ORDERED: PROPOFOL 10 MG/ML, 20ML ONE (10:03)
[2017-10-05] MEDS ORDERED: KETOROLAC 30 MG/1 ML ONE (10:03)
[2017-10-05] MEDS ORDERED: ONDANSETRON 2MG/ML, 2ML ONE (10:03)
[2017-10-05] MEDS ORDERED: CEFAZOLIN 1,000 MG ONE (10:03)
[2017-10-05] MEDS ORDERED: KETAMINE 10 MG/ML, 20ML ONE (10:17)
[2017-10-05] MEDS ORDERED: MEPERIDINE/PF 25MG/0.5ML IVPush PRN (10:30)
[2017-10-05] MEDS ORDERED: ACETAMINOPHEN 325 MG TABLET PO PRN ×2 (10:30→13:30)
[2017-10-05] MEDS ORDERED: OXYcodone 5 MG/5 ML ORAL.SOL UDC PO PRN (10:30)
[2017-10-05] MEDS ORDERED: DIAZEPAM 5 MG/ML, 2ML IVPush PRN (10:30)
[2017-10-05] MEDS ORDERED: PROMETHAZINE 25 MG/ML, 1ML IV PRN (10:30)
[2017-10-05] MEDS ORDERED: OXYcodone 5 MG/5 ML ORAL.SOL UDC ONE (10:52)
[2017-10-05] MEDS ORDERED: ACETAMINOPHEN 650 MG/20.3 ML UDC ONE (10:52)
[2017-10-05] MEDS ORDERED: HYDROmorphone 2 MG/ML, 1ML ONE (10:52)
[2017-10-05] MEDS: FENTANYL PF 100 MCG/2ML IV PRN ×2 (10:59→11:29)
[2017-10-05] MEDS: HYDROmorphone 1 MG/ML, 1ML IV PRN ×4 (11:01→11:28)
[2017-10-05] MEDS ORDERED: MEPERIDINE/PF 50 MG/ML ONE (11:31)
[2017-10-05] MEDS ORDERED: hydrALAzine 20 MG/ML, 1ML IV PRN (13:30)
[2017-10-05] MEDS ORDERED: ENALAPRILAT 1.25 MG/ML, 2ML IV PRN (13:30)
[2017-10-05] MEDS ORDERED: DIPHENHYDRAMINE 50 MG/ML, 1ML IV PRN (13:30)
[2017-10-05] MEDS ORDERED: ONDANSETRON 2MG/ML, 2ML IV PRN (13:30)
[2017-10-05] MEDS ORDERED: DIPHENHYDRAMINE 25 MG CAPSULE PO PRN (13:30)
[2017-10-05] MEDS ORDERED: ACETAMINOPHEN 650 MG SUPP PR PRN (13:30)
[2017-10-05] MEDS: ENOXAPARIN 40 MG/0.4 ML SQ SCH (13:55)
[2017-10-05] MEDS: POTASSIUM CHLORIDE 20 MEQ in D5%-0.45% NACL 1,000 ML IV SCH ×2 (13:55→23:48)
[2017-10-05] MEDS: CEFAZOLIN PMX 1GM/50ML 50 ML IV SCH (17:23)
[2017-10-05 18:30] VITALS: BP 114/75
[2017-10-05] MEDS: SODIUM CHLORIDE FLUSH 10ML SYR IVF SCH (20:03)
[2017-10-05] MEDS: KETOROLAC 30 MG/1 ML IV PRN (20:08)
[2017-10-06] VITALS: BP 112/72
[2017-10-06] MEDS: CEFAZOLIN PMX 1GM/50ML 50 ML IV SCH ×3 (01:48→18:22)
[2017-10-06 03:59] VITALS: BP 102/64
[2017-10-06 07:29] VITALS: BP 122/83
[2017-10-06] MEDS: SODIUM CHLORIDE FLUSH 10ML SYR IVF SCH ×2 (09:01→20:40)
[2017-10-06] MEDS: POTASSIUM CHLORIDE 20 MEQ in D5%-0.45% NACL 1,000 ML IV SCH ×2 (10:10→19:48)
[2017-10-06 13:06] VITALS: BP 132/80
[2017-10-06] MEDS: KETOROLAC 30 MG/1 ML IV PRN ×2 (13:21→20:54)
[2017-10-06] MEDS: ENOXAPARIN 40 MG/0.4 ML SQ SCH (13:21)
[2017-10-06] MEDS: OXYcodone/APAP 10/325MG TABLET PO PRN ×2 (16:14→22:13)
[2017-10-06 19:45] VITALS: BP 139/89
[2017-10-07] MEDS: CEFAZOLIN PMX 1GM/50ML 50 ML IV SCH ×3 (02:32→17:43)
[2017-10-07 02:34] VITALS: BP 127/83
[2017-10-07] MEDS: OXYcodone/APAP 10/325MG TABLET PO PRN ×3 (05:09→19:27)
[2017-10-07 05:50] LABS: CREATININE 0.71 mg/dL (0.7-1.3)
[2017-10-07] MEDS: POTASSIUM CHLORIDE 20 MEQ in D5%-0.45% NACL 1,000 ML IV SCH ×2 (05:54→16:22)
[2017-10-07 07:04] VITALS: BP_SYST 154; BP_SYST 156; BP_DIAS 105; BP_DIAS 95
[2017-10-07] MEDS: SODIUM CHLORIDE FLUSH 10ML SYR IVF SCH ×2 (07:52→21:00)
[2017-10-07] MEDS: KETOROLAC 30 MG/1 ML IV PRN ×2 (07:52→17:42)
[2017-10-07] MEDS ORDERED: HYDROmorphone 2 MG/ML, 1ML ONE (10:46)
[2017-10-07] MEDS ORDERED: HYDROmorphone 1 MG/ML, 1ML IV ONE (11:00)
[2017-10-07] MEDS: ENOXAPARIN 40 MG/0.4 ML SQ SCH (13:08)
[2017-10-07 14:42] VITALS: BP 123/81
[2017-10-07 15:31] LABS: INTERNATIONAL NORMALIZED RATIO 1.05 (0.93-1.1); PROTHROMBIN TIME 10.9 Seconds (9.6-11.5)
[2017-10-07] MEDS: GABAPENTIN 300 MG CAPSULE PO SCH ×2 (16:21→21:16)
[2017-10-07 17:40] VITALS: BP 155/94
[2017-10-07] MEDS: METOPROLOL TARTRATE 50 MG TABLET PO SCH (17:43)
[2017-10-07] MEDS ORDERED: WARFARIN 2 MG TABLET PO-COUM SCH (18:00)
[2017-10-07] MEDS ORDERED: WARFARIN 3 MG TABLET PO-COUM SCH (18:00)
[2017-10-07 20:01] VITALS: BP 135/87
[2017-10-07] MEDS: FENTANYL PF 100 MCG/2ML IVPush PRN ×2 (22:12→23:20)
[2017-10-08] MEDS: POTASSIUM CHLORIDE 20 MEQ in D5%-0.45% NACL 1,000 ML IV SCH ×2 (02:06→12:12)
[2017-10-08 02:15] VITALS: BP 122/83
[2017-10-08] MEDS: KETOROLAC 30 MG/1 ML IV PRN (02:20)
[2017-10-08] MEDS: OXYcodone/APAP 10/325MG TABLET PO PRN ×4 (02:20→20:38)
[2017-10-08] MEDS: CEFAZOLIN PMX 1GM/50ML 50 ML IV SCH ×3 (02:21→18:30)
[2017-10-08] MEDS: FENTANYL PF 100 MCG/2ML IVPush PRN ×7 (03:49→23:00)
[2017-10-08] MEDS: METOPROLOL TARTRATE 50 MG TABLET PO SCH ×2 (06:20→18:31)
[2017-10-08 06:48] VITALS: BP 147/93
[2017-10-08] MEDS: GABAPENTIN 300 MG CAPSULE PO SCH ×3 (08:25→20:38)
[2017-10-08] MEDS: SODIUM CHLORIDE FLUSH 10ML SYR IVF SCH ×2 (08:26→21:00)
[2017-10-08 10:02] LABS: INTERNATIONAL NORMALIZED RATIO 1.03 (0.93-1.1); PROTHROMBIN TIME 10.7 Seconds (9.6-11.5)
[2017-10-08 13:16] VITALS: BP 125/73
[2017-10-08] MEDS: ENOXAPARIN 40 MG/0.4 ML SQ SCH (14:27)
[2017-10-08] MEDS ORDERED: WARFARIN 7.5 MG TABLET PO-COUM ONE (18:00)
[2017-10-08] MEDS ORDERED: WARFARIN 2 MG TABLET PO-COUM SCH (18:00)
[2017-10-08 18:30] VITALS: BP 121/52
[2017-10-09] MEDS: FENTANYL PF 100 MCG/2ML IVPush PRN ×7 (00:40→22:47)
[2017-10-09] MEDS: CEFAZOLIN PMX 1GM/50ML 50 ML IV SCH ×2 (02:18→10:24)
[2017-10-09 03:49] VITALS: BP 109/66
[2017-10-09] MEDS: OXYcodone/APAP 10/325MG TABLET PO PRN ×3 (05:36→20:12)
[2017-10-09] MEDS: POTASSIUM CHLORIDE 20 MEQ in D5%-0.45% NACL 1,000 ML IV SCH ×2 (05:36→17:00)
[2017-10-09] MEDS: METOPROLOL TARTRATE 50 MG TABLET PO SCH ×2 (05:49→18:13)
[2017-10-09] MEDS: DOCUSATE 100 MG CAPSULE PO PRN (05:49)
[2017-10-09 09:32] LABS: INTERNATIONAL NORMALIZED RATIO 1.45 (0.93-1.1)
[2017-10-09] MEDS: GABAPENTIN 300 MG CAPSULE PO SCH ×3 (10:23→20:46)
[2017-10-09] MEDS: SODIUM CHLORIDE FLUSH 10ML SYR IVF SCH ×2 (10:23→20:51)
[2017-10-09] MEDS ORDERED: HYDROmorphone 2 MG/ML, 1ML IVPush PRN (11:00)
[2017-10-09 15:14] VITALS: BP 134/84
[2017-10-09] MEDS: ENOXAPARIN 40 MG/0.4 ML SQ SCH (15:16)
[2017-10-09] MEDS ORDERED: WARFARIN 7.5 MG TABLET PO-COUM ONE (18:00)
[2017-10-09 18:32] VITALS: BP 133/85
[2017-10-10] MEDS: POTASSIUM CHLORIDE 20 MEQ in D5%-0.45% NACL 1,000 ML IV SCH ×3 (03:06→23:18)
[2017-10-10 03:07] VITALS: BP 105/67
[2017-10-10] MEDS: OXYcodone/APAP 10/325MG TABLET PO PRN ×3 (05:03→17:29)
[2017-10-10 05:21] LABS: INTERNATIONAL NORMALIZED RATIO 1.82 (0.93-1.1); PROTHROMBIN TIME 18.7 Seconds (9.6-11.5)
[2017-10-10 05:28] LABS: CREATININE 0.73 mg/dL (0.7-1.3)
[2017-10-10] MEDS: METOPROLOL TARTRATE 50 MG TABLET PO SCH ×2 (06:00→17:31)
[2017-10-10 07:39] VITALS: BP 103/64
[2017-10-10] MEDS: GABAPENTIN 300 MG CAPSULE PO SCH ×3 (08:23→21:16)
[2017-10-10] MEDS: SODIUM CHLORIDE FLUSH 10ML SYR IVF SCH ×2 (08:24→21:16)
[2017-10-10] MEDS: FENTANYL PF 100 MCG/2ML IVPush PRN (09:25)
[2017-10-10] MEDS: ENOXAPARIN 40 MG/0.4 ML SQ SCH (14:37)
[2017-10-10 15:20] VITALS: BP 127/84
[2017-10-10 17:31] VITALS: BP 124/76
[2017-10-10] MEDS ORDERED: WARFARIN 10 MG TABLET PO-COUM ONE (18:00)
[2017-10-10] MEDS ORDERED: WARFARIN 2 MG TABLET PO-COUM ONE (18:00)
[2017-10-10 18:36] VITALS: BP 120/80
[2017-10-10] MEDS: DOCUSATE 100 MG CAPSULE PO PRN (21:24)
[2017-10-11 01:39] VITALS: BP 117/82
[2017-10-11] MEDS: METOPROLOL TARTRATE 50 MG TABLET PO SCH (05:48)
[2017-10-11] MEDS: OXYcodone/APAP 10/325MG TABLET PO PRN (05:48)
[2017-10-11 06:02] LABS: INTERNATIONAL NORMALIZED RATIO 2.13 (0.93-1.1); PROTHROMBIN TIME 21.8 Seconds (9.6-11.5)
[2017-10-11] MEDS: POTASSIUM CHLORIDE 20 MEQ in D5%-0.45% NACL 1,000 ML IV SCH (07:36)
[2017-10-11 09:00] VITALS: BP 125/51
[2017-10-11] MEDS: SODIUM CHLORIDE FLUSH 10ML SYR IVF SCH (09:07)
[2017-10-11] MEDS: GABAPENTIN 300 MG CAPSULE PO SCH (09:07)
[2017-10-11 12:00] VITALS: BP 124/83
[2017-10-11] MEDS ORDERED: HYDROmorphone 2 MG/ML, 1ML IV ONE (12:00)
[2017-10-11] MEDS ORDERED: WARFARIN 10 MG TABLET PO-COUM ONE (18:00)
== END 2017-10-11 12:10 | disposition home or self-care (01) | DRG 465 ==
LOC: OR 07:09 → 4NOR 07:29 → OR 12:16 → 4NOR 12:16
PROVIDERS: ADMIT Surgery; ATTEND Surgery
PROC: 0JBP0ZZ Excision of Left Lower Leg Subcutaneous Tissue and Fascia, Open Approach (ICD-10-PCS; principal; 2017-10-10)
DX: T87.81 Dehiscence of amputation stump (principal); I48.91 Unspecified atrial fibrillation; Y83.8 Other surgical procedures as the cause of abnormal reaction of the patient, or of later complication, without mention of misadventure at the time of the procedure; Z79.01 Long term (current) use of anticoagulants; Z87.891 Personal history of nicotine dependence; Z89.512 Acquired absence of left leg below knee
CPT/HCPCS: 36415; 82565; 85610; 85730; J0690; J1170; J1650; J1885; J2175; J2250; J2270; J2405; J2704; J3010; J3480

== ENCOUNTER 2017-11-25 10:30 | Inpatient (IN) | payer OTHER, MEDICAID ==
[~2017-11-25] VITALS: Ht 177.8 cm; Wt 95.0 kg
[~2017-11-25 10:30] MED LIST changes: +WARF-36 PO; +WARF3TAB52 PO; -WARF3TAB7 PO; -WARF5TAB7 PO
[2017-11-25 11:43] LABS: BASOPHILS # (AUTO) 0.02 x10^3/uL (0-0.1); BASOPHILS % (AUTO) 0 % (0-1); EOSINOPHILS % (AUTO) 0 % (1-7); LYMPHOCYTES # (AUTO) 1.15 x10^3/uL (1-3.4); LYMPHOCYTES % (AUTO) 9 % (22-44); MD NO; MEAN CORPUSCULAR HEMOGLOBIN 29.6 pg (27.5-34.5); MEAN CORPUSCULAR HGB CONC 34.5 g/dL (33.2-36.2); MEAN CORPUSCULAR VOLUME 85.7 fL (81-97); MEAN PLATELET VOLUME 8.1 fL (7.4-10.4); MONOCYTES # (AUTO) 0.83 x10^3/uL (0.2-0.8); MONOCYTES % (AUTO) 6 % (2-9); NEUTROPHILS # (AUTO) 11.38 x10^3/uL (1.8-6.8); NEUTROPHILS % (AUTO) 85 % (42-75); PLATELET COUNT 260 x10^3/uL (130-400); RED BLOOD COUNT 5.23 x10^6/uL (4.38-5.82); RED CELL DISTRIBUTION WIDTH 17.6 % (9.4-14.8)
[2017-11-25 11:58] LABS: ALBUMIN 3.7 g/dL (3.4-5.0); CALCIUM 8.9 mg/dL (8.5-10.1); CREATININE 0.73 mg/dL (0.7-1.3)
[2017-11-25] MEDS ORDERED: CLINDAMYCIN PMX 900MG/50ML 50 ML IV ONE (12:00)
[2017-11-25] MEDS ORDERED: morphine SULFATE 10 MG/ML, 1ML IVPush ONE (12:00)
[2017-11-25] MEDS ORDERED: ONDANSETRON 2MG/ML, 2ML IVPush ONE (12:00)
[2017-11-25 12:06] LABS: ANION GAP 10 mmol/L (5-15); CHLORIDE 106 mmol/L (98-107)
[2017-11-25] MEDS ORDERED: CLINDAMYCIN PMX 900MG/50ML 50 ML ONE (12:06)
[2017-11-25] MEDS ORDERED: ONDANSETRON 2MG/ML, 2ML ONE (12:06)
[2017-11-25] MEDS ORDERED: MORPHINE SULFATE 4 MG/ML, 1ML ONE (12:06)
[2017-11-25] MEDS ORDERED: OMNIPAQUE 350 MG/ML, 100ML BOTTLE ONE (13:25)
[2017-11-25] MEDS ORDERED: ACETAMINOPHEN 500 MG TABLET PO ONE (14:00)
[2017-11-25] MEDS ORDERED: VANCOMYCIN PER PHARMACY MC ONE (14:00)
[2017-11-25] MEDS ORDERED: ACETAMINOPHEN 500 MG TABLET ONE (14:17)
[2017-11-25] MEDS ORDERED: VANCOMYCIN 1,700 MG in SODIUM CHLORIDE 0.9% 250 ML IV ONE (14:30)
[2017-11-25] MEDS ORDERED: POTASSIUM CHLORIDE 20 MEQ TAB.ER.PRT PO ONE (15:00)
[2017-11-25 15:13] LABS: INTERNATIONAL NORMALIZED RATIO 2.08 (0.93-1.1); PROTHROMBIN TIME 21.3 Seconds (9.6-11.5)
[2017-11-25] MEDS ORDERED: POTASSIUM CHLORIDE 20 MEQ TAB.ER.PRT ONE (15:34)
[2017-11-25 16:00] VITALS: BP 126/65
[2017-11-25] MEDS: OXYcodone/APAP 10/325MG TABLET PO PRN ×2 (16:14→20:43)
[2017-11-25] MEDS: LACTOBACILLUS CHEW TABLET PO SCH (18:17)
[2017-11-25] MEDS ORDERED: HYDROmorphone 2 MG/ML, 1ML ONE (18:54)
[2017-11-25] MEDS ORDERED: HYDROmorphone 2 MG/ML, 1ML IVPush PRN ×2 (19:00)
[2017-11-25 19:30] VITALS: BP 123/81
[2017-11-25] MEDS: ACETAMINOPHEN 325 MG TABLET PO PRN (19:52)
[2017-11-25] MEDS: PIPERACILLIN/TAZO/PMX 3.375GM 50 ML IV SCH (19:52)
[2017-11-25] MEDS ORDERED: CLINDAMYCIN PMX 900MG/50ML 50 ML IV SCH (20:00)
[2017-11-25] MEDS: METOPROLOL TARTRATE 50 MG TABLET PO SCH (20:36)
[2017-11-25] MEDS: MORPHINE SULFATE 4 MG/ML, 1ML IVPush PRN (22:11)
[2017-11-26] MEDS: ACETAMINOPHEN 325 MG TABLET PO PRN ×2 (00:06→03:59)
[2017-11-26] MEDS: OXYcodone/APAP 10/325MG TABLET PO PRN ×6 (00:52→21:18)
[2017-11-26] MEDS: PIPERACILLIN/TAZO/PMX 3.375GM 50 ML IV SCH (00:52)
[2017-11-26 01:44] VITALS: BP 118/74
[2017-11-26] MEDS ORDERED: VANCOMYCIN PER PHARMACY MC PRN (02:00)
[2017-11-26] MEDS: MORPHINE SULFATE 4 MG/ML, 1ML IVPush PRN ×5 (02:20→17:22)
[2017-11-26] MEDS ORDERED: VANCOMYCIN 1,600 MG in SODIUM CHLORIDE 0.9% 250 ML IV SCH (02:30)
[2017-11-26] MEDS ORDERED: PHARMACOKINETIC CONSULTATION MC ONE (02:30)
[2017-11-26] MEDS ORDERED: PHARMACOKINETIC MONITORING MC PRN (02:30)
[2017-11-26 07:13] VITALS: BP 114/74
[2017-11-26] MEDS ORDERED: IBUPROFEN 200 MG TABLET PO PRN (08:30)
[2017-11-26 08:45] VITALS: BP 119/71
[2017-11-26] MEDS: METOPROLOL TARTRATE 50 MG TABLET PO SCH ×2 (09:23→21:15)
[2017-11-26] MEDS: LACTOBACILLUS CHEW TABLET PO SCH ×3 (09:23→17:22)
[2017-11-26] MEDS: CLINDAMYCIN PMX 900MG/50ML 50 ML IV SCH ×2 (10:00→18:29)
[2017-11-26 13:20] LABS: INTERNATIONAL NORMALIZED RATIO 1.49 (0.93-1.1); PROTHROMBIN TIME 15.4 Seconds (9.6-11.5)
[2017-11-26 13:24] VITALS: BP 117/76
[2017-11-26 13:24] LABS: ANION GAP 8 mmol/L (5-15); CALCIUM 8.4 mg/dL (8.5-10.1); CHLORIDE 103 mmol/L (98-107); CREATININE 1.12 mg/dL (0.7-1.3)
[2017-11-26 19:05] VITALS: BP 114/76
[2017-11-27] MEDS: CLINDAMYCIN PMX 900MG/50ML 50 ML IV SCH ×3 (01:38→18:46)
[2017-11-27] MEDS: OXYcodone/APAP 10/325MG TABLET PO PRN ×5 (01:43→20:09)
[2017-11-27 01:59] VITALS: BP 128/78
[2017-11-27] MEDS: MORPHINE SULFATE 4 MG/ML, 1ML IVPush PRN ×5 (03:28→23:40)
[2017-11-27 08:02] VITALS: BP 138/66
[2017-11-27] MEDS: LACTOBACILLUS CHEW TABLET PO SCH ×3 (08:59→17:51)
[2017-11-27] MEDS: METOPROLOL TARTRATE 50 MG TABLET PO SCH ×2 (08:59→20:09)
[2017-11-27 12:21] LABS: ANION GAP 6 mmol/L (5-15); CALCIUM 8.2 mg/dL (8.5-10.1); CHLORIDE 103 mmol/L (98-107); CREATININE 1.22 mg/dL (0.7-1.3)
[2017-11-27 12:30] LABS: BASOPHILS # (AUTO) 0.01 x10^3/uL (0-0.1); BASOPHILS % (AUTO) 0 % (0-1); EOSINOPHILS # (AUTO) 0.19 x10^3/uL (0-0.4); EOSINOPHILS % (AUTO) 3 % (1-7); LYMPHOCYTES % (AUTO) 17 % (22-44); MD SCAN; MEAN CORPUSCULAR HEMOGLOBIN 29.1 pg (27.5-34.5); MEAN CORPUSCULAR HGB CONC 34.2 g/dL (33.2-36.2); MEAN PLATELET VOLUME 7.9 fL (7.4-10.4); MONOCYTES # (AUTO) 1.09 x10^3/uL (0.2-0.8); MONOCYTES % (AUTO) 17 % (2-9); NEUTROPHILS # (AUTO) 4.03 x10^3/uL (1.8-6.8); NEUTROPHILS % (AUTO) 63 % (42-75); PLATELET COUNT 208 x10^3/uL (130-400); RED BLOOD COUNT 4.24 x10^6/uL (4.38-5.82); RED CELL DISTRIBUTION WIDTH 18.2 % (9.4-14.8)
[2017-11-27 13:54] VITALS: BP 119/79
[2017-11-27] MEDS: ENOXAPARIN 80 MG/0.8 ML SQ SCH (15:52)
[2017-11-27 18:59] VITALS: BP 139/82
[2017-11-27] MEDS: SODIUM CHLORIDE FLUSH 10ML SYR IVF SCH (20:09)
[2017-11-28] MEDS: CLINDAMYCIN PMX 900MG/50ML 50 ML IV SCH ×2 (02:42→10:27)
[2017-11-28 02:49] VITALS: BP 114/71
[2017-11-28] MEDS: ENOXAPARIN 80 MG/0.8 ML SQ SCH ×2 (04:18→17:35)
[2017-11-28] MEDS: MORPHINE SULFATE 4 MG/ML, 1ML IVPush PRN ×5 (04:18→19:53)
[2017-11-28] MEDS: OXYcodone/APAP 10/325MG TABLET PO PRN ×4 (07:17→23:19)
[2017-11-28 07:20] VITALS: BP 131/85
[2017-11-28] MEDS: SODIUM CHLORIDE FLUSH 10ML SYR IVF SCH ×2 (09:14→19:52)
[2017-11-28] MEDS: METOPROLOL TARTRATE 50 MG TABLET PO SCH ×2 (09:27→19:53)
[2017-11-28] MEDS: LACTOBACILLUS CHEW TABLET PO SCH ×3 (09:28→16:42)
[2017-11-28 14:01] VITALS: BP 134/89
[2017-11-28 19:40] VITALS: BP 130/89
[2017-11-29] MEDS: MORPHINE SULFATE 4 MG/ML, 1ML IVPush PRN ×3 (02:17→18:39)
[2017-11-29 03:55] VITALS: BP 114/74
[2017-11-29] MEDS: OXYcodone/APAP 10/325MG TABLET PO PRN ×4 (04:15→21:36)
[2017-11-29] MEDS: ENOXAPARIN 80 MG/0.8 ML SQ SCH ×2 (04:16→16:37)
[2017-11-29 04:55] LABS: HCT (SEDRATE) 35.4 % (39.2-51.8)
[2017-11-29] MEDS: METOPROLOL TARTRATE 50 MG TABLET PO SCH ×2 (08:20→21:36)
[2017-11-29] MEDS: LACTOBACILLUS CHEW TABLET PO SCH ×3 (08:20→16:37)
[2017-11-29] MEDS: SODIUM CHLORIDE FLUSH 10ML SYR IVF SCH ×2 (08:20→21:37)
[2017-11-29 08:48] VITALS: BP 123/84
[2017-11-29] MEDS ORDERED: GADOBUTROL 10 MMOL/10 ML PFS ONE (10:39)
[2017-11-29 13:20] VITALS: BP 114/80
[2017-11-29 19:42] VITALS: BP 128/76
[2017-11-30 02:44] VITALS: BP 121/75
[2017-11-30] MEDS: ENOXAPARIN 80 MG/0.8 ML SQ SCH ×2 (05:23→16:45)
[2017-11-30] MEDS: OXYcodone/APAP 10/325MG TABLET PO PRN ×4 (05:28→22:06)
[2017-11-30 07:00] VITALS: BP 136/84
[2017-11-30] MEDS: LACTOBACILLUS CHEW TABLET PO SCH ×3 (07:44→16:44)
[2017-11-30] MEDS: SODIUM CHLORIDE FLUSH 10ML SYR IVF SCH ×2 (07:44→20:58)
[2017-11-30] MEDS: MORPHINE SULFATE 4 MG/ML, 1ML IVPush PRN ×2 (07:44→14:44)
[2017-11-30] MEDS: METOPROLOL TARTRATE 50 MG TABLET PO SCH ×2 (07:45→20:57)
[2017-11-30] MEDS ORDERED: MORPHINE SULFATE 4 MG/ML, 1ML IVPush ONE (09:00)
[2017-11-30] MEDS: ERTAPENEM 1 GM in SODIUM CHLORIDE 0.9% 50 ML IV SCH (09:30)
[2017-11-30 14:19] VITALS: BP 137/83
[2017-11-30 17:15] LABS: PROTHROMBIN TIME 10.4 Seconds (9.6-11.5)
[2017-11-30] MEDS ORDERED: WARFARIN 5 MG TABLET PO-COUM ONE (18:00)
[2017-11-30 19:39] VITALS: BP 147/88
[2017-11-30] MEDS ORDERED: COLCHICINE 0.6 MG TABLET PO SCH ×2 (21:00→22:00)
[2017-12-01 01:56] VITALS: BP 132/86
[2017-12-01] MEDS: ENOXAPARIN 80 MG/0.8 ML SQ SCH ×2 (05:20→18:11)
[2017-12-01] MEDS: OXYcodone/APAP 10/325MG TABLET PO PRN ×5 (05:38→22:17)
[2017-12-01 05:57] LABS: INTERNATIONAL NORMALIZED RATIO 1.02 (0.93-1.1); PROTHROMBIN TIME 10.6 Seconds (9.6-11.5)
[2017-12-01 07:55] VITALS: BP 123/77
[2017-12-01] MEDS: ERTAPENEM 1 GM in SODIUM CHLORIDE 0.9% 50 ML IV SCH (09:35)
[2017-12-01] MEDS: LACTOBACILLUS CHEW TABLET PO SCH ×3 (09:35→18:11)
[2017-12-01] MEDS: METOPROLOL TARTRATE 50 MG TABLET PO SCH ×2 (09:35→20:55)
[2017-12-01] MEDS: SODIUM CHLORIDE FLUSH 10ML SYR IVF SCH ×2 (09:36→20:55)
[2017-12-01 13:25] VITALS: BP 148/82
[2017-12-01] MEDS ORDERED: WARFARIN 10 MG TABLET PO-COUM SCH (18:00)
[2017-12-01 22:30] VITALS: BP 138/87
[2017-12-02 01:54] VITALS: BP_SYST 132; BP_SYST 136; BP_DIAS 85; BP_DIAS 88
[2017-12-02] MEDS: OXYcodone/APAP 10/325MG TABLET PO PRN ×4 (05:29→18:29)
[2017-12-02] MEDS: ENOXAPARIN 80 MG/0.8 ML SQ SCH ×2 (05:29→17:40)
[2017-12-02 06:13] LABS: INTERNATIONAL NORMALIZED RATIO 1.27 (0.93-1.1); PROTHROMBIN TIME 13.1 Seconds (9.6-11.5)
[2017-12-02 06:15] LABS: BASOPHILS # (AUTO) 0.05 x10^3/uL (0-0.1); BASOPHILS % (AUTO) 1 % (0-1); EOSINOPHILS # (AUTO) 0.03 x10^3/uL (0-0.4); EOSINOPHILS % (AUTO) 0 % (1-7); LYMPHOCYTES # (AUTO) 1.97 x10^3/uL (1-3.4); LYMPHOCYTES % (AUTO) 20 % (22-44); MD NO; MEAN CORPUSCULAR HEMOGLOBIN 29.4 pg (27.5-34.5); MEAN CORPUSCULAR HGB CONC 33.9 g/dL (33.2-36.2); MEAN CORPUSCULAR VOLUME 86.7 fL (81-97); MEAN PLATELET VOLUME 7.8 fL (7.4-10.4); MONOCYTES # (AUTO) 0.99 x10^3/uL (0.2-0.8); MONOCYTES % (AUTO) 10 % (2-9); NEUTROPHILS # (AUTO) 7.04 x10^3/uL (1.8-6.8); NEUTROPHILS % (AUTO) 70 % (42-75); PLATELET COUNT 331 x10^3/uL (130-400); RED BLOOD COUNT 4.18 x10^6/uL (4.38-5.82); RED CELL DISTRIBUTION WIDTH 16.8 % (9.4-14.8)
[2017-12-02 06:19] LABS: ALANINE AMINOTRANSFERASE 49 U/L (12-78); ALBUMIN 2.9 g/dL (3.4-5.0); ANION GAP 8 mmol/L (5-15); CALCIUM 9.1 mg/dL (8.5-10.1); CHLORIDE 108 mmol/L (98-107); CREATININE 0.75 mg/dL (0.7-1.3)
[2017-12-02 06:26] LABS: ALKALINE PHOSPHATASE 106 U/L (45-117); BILIRUBIN,TOTAL 0.1 mg/dL (0.2-1.0); TOTAL PROTEIN 7.3 g/dL (6.4-8.2)
[2017-12-02 06:44] LABS: HCT (SEDRATE) 35.4 % (39.2-51.8)
[2017-12-02 07:35] VITALS: BP 119/73
[2017-12-02] MEDS: LACTOBACILLUS CHEW TABLET PO SCH ×3 (08:29→17:39)
[2017-12-02] MEDS: SODIUM CHLORIDE FLUSH 10ML SYR IVF SCH (08:30)
[2017-12-02] MEDS: METOPROLOL TARTRATE 50 MG TABLET PO SCH (08:30)
[2017-12-02] MEDS: MORPHINE SULFATE 4 MG/ML, 1ML IVPush PRN (11:25)
[2017-12-02] MEDS: ERTAPENEM 1 GM in SODIUM CHLORIDE 0.9% 50 ML IV SCH (11:30)
[2017-12-02] MEDS ORDERED: MORPHINE SULFATE 4 MG/ML, 1ML IVPush PRN (11:34)
[2017-12-02 12:33] VITALS: BP 130/87
[2017-12-02] MEDS ORDERED: DAPTOMYCIN 600 MG in SODIUM CHLORIDE 0.9% 100 ML IVPB SCH (13:00)
[2017-12-02] MEDS ORDERED: INDO50CA PO (15:52)
[2017-12-02] MEDS ORDERED: ENOX120S5 SQ (16:22)
[2017-12-02] MEDS ORDERED: WARFARIN 10 MG TABLET PO-COUM ONE (18:00)
== END 2017-12-02 19:10 | disposition home health service (06) | DRG 565 ==
LOC: ED 12:43 → EDIP 14:14 → 3NE 15:58
PROVIDERS: ADMIT Internal Medicine; ATTEND Family Medicine
PROC: 02HV33Z Insertion of Infusion Device into Superior Vena Cava, Percutaneous Approach (ICD-10-PCS; principal; 2017-11-27)
PROC: B5181ZA Fluoroscopy of Superior Vena Cava using Low Osmolar Contrast, Guidance (ICD-10-PCS; 2017-11-27)
PROC: B548ZZA Ultrasonography of Superior Vena Cava, Guidance (ICD-10-PCS; 2017-11-27)
DX: T87.44 Infection of amputation stump, left lower extremity (principal); L02.416 Cutaneous abscess of left lower limb; I48.91 Unspecified atrial fibrillation; M86.9 Osteomyelitis, unspecified; L03.116 Cellulitis of left lower limb; I10 Essential (primary) hypertension; E87.6 Hypokalemia; M10.9 Gout, unspecified; Y83.5 Amputation of limb(s) as the cause of abnormal reaction of the patient, or of later complication, without mention of misadventure at the time of the procedure; Z79.01 Long term (current) use of anticoagulants; Z82.5 Family history of asthma and other chronic lower respiratory diseases; Z87.11 Personal history of peptic ulcer disease
CPT/HCPCS: 36415; 36569; 76937; 77001; 80048; 80053; 82040; 83605; 83735; 84145; 84550; 85025; 85610; 85651; 86140; 87040; 87070; 87077; 87186; 87205; 96374; 96375; A9585; J0878; J1170; J1335; J1650; J2405; J2543; J3370; Q9967; C1751; J2270; J7050; J7512

== ENCOUNTER 2018-07-15 18:23 | Emergency (ER) | payer MEDICAID ==
[~2018-07-15] VITALS: Ht 177.8 cm; Wt 97.7 kg
[~2018-07-15 18:23] MED LIST changes: +DOXY100C2 PO; +ENOX120S5 SQ; +INDO50CA5 PO; +LOSA100T7 PO; +WARF4TAB65 PO; -WARF4TAB7 PO
[2018-07-15 19:18] LABS: INTERNATIONAL NORMALIZED RATIO 1.26 (0.93-1.1); PROTHROMBIN TIME 12.9 Seconds (9.6-11.5)
[2018-07-15 20:34] VITALS: BP 145/80
== END 2018-07-15 20:52 | disposition home or self-care (01) ==
LOC: ED 20:02
DX: I10 Essential (primary) hypertension (principal); S76.111A Strain of right quadriceps muscle, fascia and tendon, initial encounter; S76.211A Strain of adductor muscle, fascia and tendon of right thigh, initial encounter; X58.XXXA Exposure to other specified factors, initial encounter; Y93.89 Activity, other specified; Y92.89 Other specified places as the place of occurrence of the external cause; Y99.8 Other external cause status
CPT/HCPCS: 36415; 85610; 85730; 99285

== ENCOUNTER 2018-08-20 12:05 | Emergency (ER) | payer MEDICAID ==
[~2018-08-20] VITALS: Ht 177.8 cm; Wt 106.5 kg
[2018-08-20 12:11] VITALS: BP 167/100
[2018-08-20] MEDS ORDERED: DIPH,PERTUSS(ACELL),TET VAC/PF 0.5 ML IM-VACC ONE ×2 (12:25→12:30)
[2018-08-20] MEDS ORDERED: BACITRACIN ZINC OINT 500U/GM, 0.9 GM ONE (13:03)
== END 2018-08-20 13:45 | disposition home or self-care (01) ==
LOC: ED 13:39
DX: L03.115 Cellulitis of right lower limb (principal); I10 Essential (primary) hypertension; F17.200 Nicotine dependence, unspecified, uncomplicated; Z72.9 Problem related to lifestyle, unspecified; Z87.19 Personal history of other diseases of the digestive system
CPT/HCPCS: 90471; 90715; 99283

== ENCOUNTER 2019-08-23 00:52 | Emergency (ER) | payer OTHER ==
[~2019-08-23] VITALS: Ht 177.8 cm; Wt 100.0 kg
[~2019-08-23 00:52] MED LIST changes: -GABA600T2 PO; +GABA600T7 PO; +INDO50CA15 PO; -INDO50CA5 PO; +LOSA100T14 PO; -LOSA100T7 PO
[2019-08-23] MEDS ORDERED: SODIUM CHLORIDE FLUSH 10ML SYR IVF ONE (01:00)
[2019-08-23] MEDS ORDERED: ONDANSETRON 2MG/ML, 2ML IVPush ONE (01:00)
[2019-08-23] MEDS ORDERED: CLINDAMYCIN PMX 600MG/50ML 50 ML IVPB ONE (01:00)
[2019-08-23] MEDS ORDERED: HYDROmorphone 2 MG/ML, 1ML IVPush ONE (01:00)
--- NOTE | 2019-08-23 01:11 | NUR ---
DEJON RN: ASSUMED CARE OF PATIENT. PATIENT ALLI HOWARD. PT HAS A LEFT BKA. PT'S STUMP IS RED AND PAINFUL. VS STABLE. PT SEEN BY DR KAMARA. CALL LIGHT IN PLACE. [place] [facility] [place]
[2019-08-23 01:35] LABS: BASOPHILS % (AUTO) 1 % (0-1); EOSINOPHILS # (AUTO) 0.25 x10^3/uL (0-0.4); EOSINOPHILS % (AUTO) 2 % (1-7); LYMPHOCYTES # (AUTO) 1.99 x10^3/uL (1-3.4); LYMPHOCYTES % (AUTO) 17 % (22-44); MD NO; MEAN CORPUSCULAR HEMOGLOBIN 32.7 pg (27.5-34.5); MEAN CORPUSCULAR HGB CONC 33.4 g/dL (33.2-36.2); MEAN CORPUSCULAR VOLUME 97.9 fL (81-97); MEAN PLATELET VOLUME 8.2 fL (7.4-10.4); MONOCYTES # (AUTO) 1.08 x10^3/uL (0.2-0.8); MONOCYTES % (AUTO) 9 % (2-9); NEUTROPHILS # (AUTO) 8.32 x10^3/uL (1.8-6.8); NEUTROPHILS % (AUTO) 71 % (42-75); PLATELET COUNT 274 x10^3/uL (130-400); RED CELL DISTRIBUTION WIDTH 14.3 % (9.4-14.8)
[2019-08-23] MEDS ORDERED: ONDANSETRON 2MG/ML, 2ML ONE (01:39)
[2019-08-23] MEDS ORDERED: HYDROmorphone 1 MG/ML, 1ML VIAL ONE (01:39)
[2019-08-23] MEDS ORDERED: CLINDAMYCIN PMX 600MG/50ML 50 ML ONE (01:40)
[2019-08-23 01:47] LABS: ALANINE AMINOTRANSFERASE 61 U/L (12-78); ALBUMIN 3.5 g/dL (3.4-5.0); ANION GAP 6 mmol/L (5-15); CALCIUM 8.8 mg/dL (8.5-10.1); CHLORIDE 104 mmol/L (98-107)
[2019-08-23 01:50] LABS: ALKALINE PHOSPHATASE 94 U/L (45-117); BILIRUBIN,TOTAL 0.5 mg/dL (0.2-1.0); CREATININE 0.86 mg/dL (0.7-1.3); TOTAL PROTEIN 7.5 g/dL (6.4-8.2)
[2019-08-23 02:48] VITALS: BP 144/92
[2019-08-23] MEDS ORDERED: METO50TA82 PO (02:54)
--- NOTE | 2019-08-23 02:54 | NUR ---
PT RESTING ON GURNEY. PLACED FOR RECHECK. NO ACUTE DISTRESS. NO REQUESTS AT THIS TIME.
--- NOTE | 2019-08-23 03:17 | NUR ---
DR KAMARA UPDATED PT ON POC. PT TO BE DISCHARGED SOON ABX ARE DONE INFUSING
[2019-08-23] MEDS ORDERED: OMNIPAQUE 350 MG/ML, 100ML BOTTLE ONE (06:07)
== END 2019-08-23 03:36 | disposition home or self-care (01) ==
LOC: ED 01:54
DX: L03.116 Cellulitis of left lower limb (principal); F17.200 Nicotine dependence, unspecified, uncomplicated; I10 Essential (primary) hypertension; Z89.512 Acquired absence of left leg below knee
CPT/HCPCS: 36415; 73701; 80053; 83605; 84145; 85025; 87040; 96365; 96366; 96375; 99284; J1170; J2405; Q9967

== ENCOUNTER 2020-06-29 12:20 | Emergency (ER) | payer OTHER ==
[~2020-06-29] VITALS: Ht 177.8 cm; Wt 100.7 kg
[2020-06-29 13:06] LABS: BASOPHILS % (AUTO) 1 % (0-1); EOSINOPHILS % (AUTO) 2 % (1-7); LYMPHOCYTES % (AUTO) 16 % (22-44); MEAN CORPUSCULAR HEMOGLOBIN 34.8 pg (27.5-34.5); MEAN CORPUSCULAR HGB CONC 33.8 g/dL (33.2-36.2); MEAN PLATELET VOLUME 8.1 fL (7.4-10.4); MONOCYTES % (AUTO) 11 % (2-9); NEUTROPHILS % (AUTO) 71 % (42-75); PLATELET COUNT 333 x10^3/uL (130-400); RED BLOOD COUNT 4.69 x10^6/uL (4.38-5.82); RED CELL DISTRIBUTION WIDTH 15.2 % (9.4-14.8)
[2020-06-29 13:18] LABS: INTERNATIONAL NORMALIZED RATIO 2.87 (0.93-1.1); PROTHROMBIN TIME 29.9 Seconds (9.6-11.5)
[2020-06-29 13:19] LABS: ALBUMIN 3.7 g/dL (3.4-5.0); ANION GAP 8 mmol/L (5-15); CALCIUM 9.1 mg/dL (8.5-10.1); CHLORIDE 104 mmol/L (98-107)
[2020-06-29 13:22] LABS: ALANINE AMINOTRANSFERASE 121 U/L (12-78); ALKALINE PHOSPHATASE 133 U/L (45-117); BILIRUBIN,TOTAL 0.5 mg/dL (0.2-1.0); CREATININE 0.83 mg/dL (0.7-1.3); TOTAL PROTEIN 8.1 g/dL (6.4-8.2)
[2020-06-29 13:43] LABS: MD MORPH REVIEW ONLY
[2020-06-29 13:46] LABS: ANISOCYTOSIS 1+
[2020-06-29 13:47] LABS: HYPOCHROMIA 1+
[2020-06-29 13:48] LABS: <PLATELET ESTIMATE> ADEQUATE; <PLT MORPHOLOGY> NORMAL PLT MORPH; POLYCHROMASIA 1+
--- NOTE | 2020-06-29 14:17 | NUR ---
INK TECHNICIAN: PT TO ROOM FROM LOBBY VIA W/C
[2020-06-29] MEDS ORDERED: ACETAMINOPHEN 500 MG TABLET PO ONE (14:30)
[2020-06-29] MEDS ORDERED: ACETAMINOPHEN 500 MG TABLET ONE (14:32)
[2020-06-29] MEDS ORDERED: GABA600T7 PO (14:43)
[2020-06-29] MEDS ORDERED: LAMO25TB7 PO (14:43)
--- NOTE | 2020-06-29 14:53 | NUR ---
Break RN: Patient resting comfortably. Waiting for ultrasound at this time. No needs at this time on continuous monitor vss.
[2020-06-29 14:55] VITALS: BP 159/95
--- NOTE | 2020-06-29 16:02 | NUR ---
Patient/Caregiver given discharge instructions and they have confirmed that they understand the instructions. Patient ambulatory with steady gait.
== END 2020-06-29 16:03 | disposition home or self-care (01) ==
LOC: ED 14:32
DX: L03.115 Cellulitis of right lower limb (principal); M79.89 Other specified soft tissue disorders; I10 Essential (primary) hypertension; F17.210 Nicotine dependence, cigarettes, uncomplicated; Z86.718 Personal history of other venous thrombosis and embolism
CPT/HCPCS: 36415; 80053; 84550; 85025; 85610; 99285

== ENCOUNTER 2021-01-28 13:13 | Emergency (ER) | payer OTHER ==
[~2021-01-28] VITALS: Ht 177.8 cm; Wt 100.0 kg
[~2021-01-28 13:13] MED LIST changes: +LAMO25TB7 PO; -OXYC-307 PO; +OXYC-380 PO
--- NOTE | 2021-01-28 13:23 | NUR ---
PT BIB [facility], PT WITH L BKA D/T DVT. STATES OVER THE LAST FEW DAYS IT HAS BEEN SWELLING AND PAINFUL, PT UNABLE TO WEAR PROSTHETIC D/T THIS. PT STATES HE HAS HX OF INFECTIONS IN THE STUMP AND WANTED TO "BE CHECKED OUT" PT WITH NOTED SWELLING TO L STUMP, COOL TO TOUCH, ERRYTHMA NOTED. PT DENIES FEVERS. PT TO BP, CONT PULSE OX. ERP IN TO EVAL PT, AWAITING ORDERS
[2021-01-28 13:52] LABS: INTERNATIONAL NORMALIZED RATIO 2.94 (0.93-1.1); PROTHROMBIN TIME 30.8 Seconds (9.6-11.5)
[2021-01-28 14:23] VITALS: BP 150/64
[2021-01-28] MEDS ORDERED: OXYcodone/APAP 5/325MG TABLET ONE (14:25)
[2021-01-28] MEDS ORDERED: OXYcodone/APAP 5/325MG TABLET PO ONE (14:30)
== END 2021-01-28 15:14 | disposition home or self-care (01) ==
LOC: ED 13:39
DX: M79.662 Pain in left lower leg (principal); M25.562 Pain in left knee; M79.89 Other specified soft tissue disorders; F17.210 Nicotine dependence, cigarettes, uncomplicated
CPT/HCPCS: 36415; 85610; 99284